=== PATIENT | female | born 1965 | race Caucasian/White ===

== ENCOUNTER 2017-09-12 10:06 | Emergency (ER) | payer OTHER ==
[~2017-09-12] VITALS: Ht 180.3 cm; Wt 81.7 kg
[~2017-09-12 10:06] MED LIST: IBUPROFEN600 MG PO
== END 2017-09-12 13:09 | disposition home or self-care (01) ==
LOC: ED 10:06
DX: M25.551 Pain in right hip (principal); M54.5 Low back pain
CPT/HCPCS: 72100; 73502; 99283

== ENCOUNTER 2018-04-26 02:57 | Emergency (ER) | payer OTHER ==
[~2018-04-26] VITALS: Ht 175.3 cm; Wt 81.7 kg
--- OUTSIDE RECORDS SUMMARY | 2018-04-26 03:02 | XMS ---
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 Jojo has no Care Guidelines for this patient. Jose VISIT COUNT (12 MO.) 2 NIKI Paredes TOTAL 2 NOTE: Visits indicate total known visits. ED/C VISIT TRACKING (12 MO.) 04/26/2018 02:57 [facility] [place] TYPE: Emergency COMPLAINT: - L BREAST PAIN/ISSUES BREATHING 09/12/2017 10:07 [facility] [place] TYPE: Emergency COMPLAINT: - R HIP PAIN/NO INJURY DIAGNOSES: - Low back pain - Pain in right hip INPATIENT VISIT TRACKING (12 MO.) No inpatient visits to display in this time frame [email or web address]
[2018-04-26] MEDS ORDERED: DICLOXACILLIN500 MG PO (03:55)
[2018-04-26] MEDS ORDERED: IBUPROFEN600 MG PO (04:03)
== END 2018-04-26 04:13 | disposition home or self-care (01) ==
LOC: ED 02:57
DX: N63.0 Unspecified lump in unspecified breast (principal)
CPT/HCPCS: 71046; 99283-25

== ENCOUNTER 2019-04-09 19:03 | Emergency (ER) | payer OTHER ==
[~2019-04-09] VITALS: Ht 175.3 cm; Wt 81.7 kg
--- OUTSIDE RECORDS SUMMARY | ~2019-04-09 | XMS | Clinical Summary ---
Demographics + + + | Address | [address] | | | [place] [address] | + + + | Home Phone | | + + + | Preferred Language | Unknown | + + + | Marital Status | Single | + + + | Episcopal Affiliation | Unknown | + + + | Race | Unknown | + + + | Ethnic Group | Unknown | + + + Author + + + | Author | [facility] | | | [facility] [place] | + + + | Organization | [facility] | | | [facility] [place] | + + + | Address | Unknown | + + + | Phone | Unavailable | + + + Support + + +---------+ + | Name | Relationship | Address | Phone | + + +---------+ + | Edward Kirkpatrick | ECON | Unknown | | + + +---------+ + Care Team Providers + +------+ + | Care Button Spindler Name | Role | Phone | + +------+ + | Memo Limon | PCP | | + +------+ + Allergies No Known Allergies Medications + +-----+ +---------+------+------+-------+ | Medication | Sig | Dispensed | Refills | Star | End | Statu | | | | | | t | Date | s | | | | | | Date | | | + +-----+ +---------+------+------+-------+ | | | | 0 | 12/2 | | Activ | | HYDROcodone-acetamin | | | | 4/20 | | e | | ophen (NORCO) | | | | 19 | | | | 7.5-325 mg per | | | | | | | | tablet | | | | | | | + +-----+ +---------+------+------+-------+ | ibuprofen | | | 0 | 01/2 | | Activ | | (ADVIL,MOTRIN) 600 | | | | 0/20 | | e | | MG tablet | | | | 19 | | | + +-----+ +---------+------+------+-------+ + + + + +------+------+-------+ | Hospital, Clinic, or | Ordered | Route | Frequency | Star | End | Statu | | Other Facility | Dose | | | t | Date | s | | Administered | | | | Date | | | | Medication | | | | | | | + + + + +------+------+-------+ | lidocaine 1% | 5 mL | INFILTRA | ONCE | 12/3 | 12/3 | Ended | | injection 5 mL | | TION | | 1/20 | 1/20 | | | | | | | 19 | 19 | | + + + + +------+------+-------+ Active Problems Not on file Encounters +--------+ + + + + | Date | Type | Specialty | Care Team | Description | +--------+ + + + + | 04/06/ | Hospital | Radiology | Vinod Michel MD | Inflammatory breast | | 2019 | Encounter | | | cancer, left (HCC) | +--------+ + + + + | 04/06/ | Office | General Surgery | Vinod Michel MD | Inflammatory breast | | 2019 | Visit | | | cancer, left (HCC) | | | | | | (Primary Dx) | +--------+ + + + + | 04/06/ | Navigation | Oncology | Mi Ma, | | | 2019 | Services | | RN | | +--------+ + + + + from Last 3 Months Social History + +-------+ +--------+------+ | Tobacco Use | Types | Packs/Day | Years | Date | | | | | Used | | + +-------+ +--------+------+ | Never Smoker | | | | | + +-------+ +--------+------+ + +---+---+---+ | Smokeless Tobacco: | | | | | Never Used | | | | + +---+---+---+ + + + | Sex Assigned at | Date Recorded | | | | + + + | Not on file | | + + + + + + + | Job Start Date | Occupation | Industry | + + + + | Not on file | Not on file | Not on file | + + + + + + + + | Travel History | Travel Start | Travel End | + + + + + + | No recent travel history available. | + + Last Filed Vital Signs + + + + + | Vital Sign | Reading | Time Taken | Comments | + + + + + | Blood Pressure | 138/73 | 04/06/2019 1:43 PM | | | | | PST | | + + + + + | Pulse | 86 | 04/06/2019 1:43 PM | | | | | PST | | + + + + + | Temperature | 36.4 C (97.6 F) | 04/06/2019 1:43 PM | | | | | PST | | + + + + + | Respiratory Rate | - | - | | + + + + + | Oxygen Saturation | 91% | 04/06/2019 1:43 PM | | | | | PST | | + + + + + | Inhaled Oxygen | - | - | | | Concentration | | | | + + + + + | Weight | - | - | | + + + + + | Height | 176.5 cm (5' 9.5") | 04/06/2019 1:43 PM | | | | | PST | | + + + + + | Body Mass Index | - | - | | + + + + + Plan of Treatment +--------+ + + + + | Date | Type | Specialty | Care Team | Description | +--------+ + + + + | 04/12/ | Appointment | Radiology | Vinod Michel MD | | | 2019 | | | [address] [place] | | | | | | [address] [place] | | | | | | [address] | | | | | | | | +--------+ + + + + | 04/12/ | Appointment | Radiology | Vinod Michel MD | | | 2019 | | | [address] [place] | | | | | | [address] [place] | | | | | | [address] | | | | | | | | +--------+ + + + + | 04/12/ | Office | Oncology | Anisha Mcintosh MD | | | 2019 | Visit | | [address] | | | | | | [place] | | | | | | [phone] | | | | | | | | +--------+ + + + + + + + + + | Health Maintenance | Due Date | Last Done | Comments | + + + + + | Vaccine: | | | | | Dtap/Tdap/Td (1 - | 8 | | | | Tdap) | | | | + + + + + | Cervical Cancer | | | | | Screening (Pap) | 7 | | | + + + + + | Breast Cancer | | | | | Screening | 2 | | | + + + + + | Colorectal Cancer | | | | | Screening | 7 | | | | (Colonoscopy) | | | | + + + + + | Vaccine: Zoster (1 | | | | | of 2) | 7 | | | + + + + + | Vaccine: Influenza | | | | | (#1) | 9 | | | + + + + + Procedures + +--------+ + + + | Procedure Name | Priori | Date/Time | Associated Diagnosis | Comments | | | ty | | | | + +--------+ + + + | CT CHEST ABDOMEN | STAT | 04/06/2019 | Inflammatory | Results for this | | PELVIS W CONTRAST | | 4:20 PM | breast cancer, left | procedure are in the | | | | PST | ([facility]) | results section. | + +--------+ + + + | SURGICAL PATHOLOGY | STAT | 04/06/2019 | Inflammatory | Results for this | | EXAM | | 2:49 PM | breast cancer, left | procedure are in the | | | | PST | ([facility]) | results section. | + +--------+ + + + from Last [address] Chest Abdomen Pelvis w Contrast (04/06/2019 4:20 PM PST) + + | Specimen | + + | | + + + + + | Impressions | Performed At | + + + | 1. Massive entire replacement of the left breast with neoplasm, | [facility] | | almost contiguous metastatic involvement throughout the left axilla, | | | throughout the skin and subcutaneous tissues, with metastatic | | | adenopathy in the left neck, throughout the mediastinum, throughout | | | the abdomen, and with bulky metastatic disease of the liver, left | | | adrenal metastasis, omental and peritoneal metastatic disease, | | | bilateral ovarian metastatic disease, and multiple lytic bony | | | metastases with pathologic fractures as described. Signed | | | by: Juan Anderson, Yung Sign Date/Time: 04/06/2019 5:11 PM | | + + + + + + | Narrative | Performed At | + + + | CT CHEST ABDOMEN AND PELVIS WITH CONTRAST CLINICAL | [facility] | | INFORMATION: Shortness of breath and abdominal pain, Staging work up | | | possible metastatic breast cancer COMPARISON: None | | | PROCEDURE: Axial images through the chest, abdomen and pelvis after | | | the administration of 100 mL Omnipaque 350 intravenous contrast. | | | Multiplanar reconstructions. At least one of the following CT dose | | | optimization techniques were used: Automated exposure control; | | | Adjustment of mA and/or kV according to patient size; Use of | | | iterative reconstruction technique. FINDINGS: CHEST Lungs, | | | Pleura and Airways: Spiculated mass in the anterior right upper lobe | | | measuring 1.3 by 1.0 cm. 6 x 4 mm nodule in the lateral left | | | lung base . Perhaps an additional nodule in the anterior lingula | | | measuring 7 x 4 mm, poorly defined due to patient motion. | | | Nodular densities are seen along the anterior minor fissure | | | measuring 9 x 13 mm, 9 x 13 mm, suspicious for metastatic disease. | | | Adjacent right anterior middle lobe, and also posterior right and left | | | basilar atelectasis. Small right and left lower lobe pleural | | | effusions. Mediastinum: No significant pericardial, great vessel or | | | esophageal abnormality. No mediastinal mass. Lymph Nodes: | | | Metastatic adenopathy measuring up to 1.7 by 1.3 cm in the high left | | | prevascular region. Left pericardial metastatic disease with | | | nodules measuring up to 10 x 6 mm. Bulky metastatic infiltration | | | in the left axilla, for example measuring 5.0 x 3.7 cm, | | | measuring 4.0 x 3.0 cm. Diffuse masslike infiltration throughout the | | | left breast measuring 15 cm transverse by 6.6 cm AP, by 15.8 cm | | | superoinferior dimension, with additional nodular metastatic | | | infiltration throughout the skin and subcutaneous tissues throughout | | | the left breast. Diffuse metastatic infiltration and lytic change | | | throughout the sternum, extending into the presternal and substernal | | | soft tissues, measuring up to 16 mm in thickness presternal, 10 mm | | | substernal. Infiltrative left base of the neck metastatic | | | adenopathy for example 06/22 measuring 3.5 x 3.2 cm, with additional | | | level 3, level 5 metastatic left neck adenopathy. ABDOMEN Liver | | | and Biliary: Massive bulky metastatic adenopathy throughout the | | | liver. The largest of these in the lateral right hepatic lobe | | | measures at least 11.6 x 9.1 cm , with numerous right and left | | | hepatic metastatic foci. Hepatic enlargement. Pancreas, Spleen and | | | Adrenals: Left adrenal 2.5 x 1.8 cm metastasis. Right adrenal is | | | compressed, poorly defined, without definite adenopathy. Pancreas | | | unremarkable. Spleen unremarkable. Kidneys: Hypodensity in the | | | lateral midpole of the left kidney measures 1.5 cm, inadequately | | | defined on these images. This may represent complex cyst, but | | | metastatic lesion can not be excluded. ABDOMEN AND PELVIS Bowel: | | | There is diffuse infiltration of the omentum and mesenteries, with | | | mild ascites throughout the abdomen and pelvis. This may be due to | | | edema. Metastatic infiltration could not be excluded. Vessels: No | | | significant abnormality in the aorta or its proximal branches. No | | | significant abnormality in the portal veins, mesenteric veins or | | | systemic veins. Lymph Nodes: There is bulky adenopathy in the | | | periaortic region, for example left periaortic region 121 measuring | | | 3.8 x 2.6 cm, dina hepatis adenopathy for example 114 measuring | | | 3.1 x 2.9 cm. Omental nodularity for example right upper quadrant | | | 131 measuring 4.9 by 1.8 cm. Peritoneum and Retroperitoneum: | | | Diffuse infiltration of the omentum and mesenteries, with mild | | | ascites as described. There is irregular nodularity infiltrating | | | throughout the pelvis, for example along the left and right pelvic | | | floor measuring up to 10 mm in thickness on the right 182. | | | PELVIS Genitourinary: Distal ureters and bladder appear normal. | | | Irregular enlargement of the right ovary measures at least 6.2 by | | | 4.7 cm, and left ovary 5.5 by 3.4 cm. I suspect metastatic | | | involvement of both ovaries. BODY WALL Soft Tissues: Diffuse | | | infiltration of the subcutaneous tissues throughout the chest abdomen | | | and pelvis, suggesting an element of anasarca. Bones: Lytic change | | | of the left iliac bone 166 measuring 8.5 cm AP by 4.1 cm transverse | | | dimension with pathologic fractures of the lateral left iliac crest, | | | diffuse lytic involvement of the sternum and manubrium, posterior | | | right acetabulum and ischium measuring 2.5 x 1.7 cm, | | | posterolateral left 5th rib with bony destruction and pathologic | | | fracture, anterior L2 vertebral body small lytic metastasis. | | + + + + + | Procedure Note | + + | Dave, Rad Results In 04/06/2019 5:15 PM PST | | CT CHEST ABDOMEN AND PELVIS WITH CONTRAST | | | | CLINICAL INFORMATION: | | Shortness of breath and abdominal pain, Staging work up possible | | metastatic breast cancer | | | | COMPARISON: | | None | | | | PROCEDURE: | | Axial images through the chest, abdomen and pelvis after the | | administration of 100 mL Omnipaque 350 intravenous contrast. | | Multiplanar reconstructions. | | | | At least one of the following CT dose optimization techniques were | | used: Automated exposure control; Adjustment of mA and/or kV according | | to patient size; Use of iterative reconstruction technique. | | | | FINDINGS: | | CHEST | | Lungs, Pleura and Airways: | | Spiculated mass in the anterior right upper lobe measuring 1.3 by | | 1.0 cm. | | 6 x 4 mm nodule in the lateral left lung base . | | Perhaps an additional nodule in the anterior lingula measuring 7 x | | 4 mm, poorly defined due to patient motion. | | Nodular densities are seen along the anterior minor fissure | | measuring 9 x 13 mm, 9 x 13 mm, suspicious for metastatic disease. | | Adjacent right anterior middle lobe, and also posterior right and left | | basilar atelectasis. | | Small right and left lower lobe pleural effusions. | | Mediastinum: No significant pericardial, great vessel or esophageal | | abnormality. No mediastinal mass. | | Lymph Nodes: | | Metastatic adenopathy measuring up to 1.7 by 1.3 cm in the high left | | prevascular region. | | Left pericardial metastatic disease with nodules measuring up to | | 10 x 6 mm. | | | | Bulky metastatic infiltration in the left axilla, for example | | measuring 5.0 x 3.7 cm, measuring 4.0 x 3.0 cm. | | Diffuse masslike infiltration throughout the left breast measuring | | 15 cm transverse by 6.6 cm AP, by 15.8 cm superoinferior dimension, | | with additional nodular metastatic infiltration throughout the skin and | | subcutaneous tissues throughout the left breast. | | | | Diffuse metastatic infiltration and lytic change throughout the | | sternum, extending into the presternal and substernal soft tissues, | | measuring up to 16 mm in thickness presternal, 10 mm substernal. | | | | Infiltrative left base of the neck metastatic adenopathy for example | | 06/22 measuring 3.5 x 3.2 cm, with additional level 3, level 5 | | metastatic left neck adenopathy. | | | | ABDOMEN | | Liver and Biliary: Massive bulky metastatic adenopathy throughout the | | liver. The largest of these in the lateral right hepatic lobe measures | | at least 11.6 x 9.1 cm 3, with numerous right and left hepatic | | metastatic foci. Hepatic enlargement. | | Pancreas, Spleen and Adrenals: Left adrenal 2.5 x 1.8 cm metastasis. | | Right adrenal is compressed, poorly defined, without definite | | adenopathy. Pancreas unremarkable. Spleen unremarkable. | | Kidneys: Hypodensity in the lateral midpole of the left kidney measures | | 1.5 cm, inadequately defined on these images. This may represent | | complex cyst, but metastatic lesion can not be excluded. | | | | ABDOMEN AND PELVIS | | Bowel: There is diffuse infiltration of the omentum and mesenteries, | | with mild ascites throughout the abdomen and pelvis. This may be due | | to edema. Metastatic infiltration could not be excluded. | | Vessels: No significant abnormality in the aorta or its proximal | | branches. No significant abnormality in the portal veins, mesenteric | | veins or systemic veins. | | Lymph Nodes: There is bulky adenopathy in the periaortic region, for | | example left periaortic region 3/121 measuring 3.8 x 2.6 cm, dina | | hepatis adenopathy for example 3/114 measuring 3.1 x 2.9 cm. | | Omental nodularity for example right upper quadrant 3/131 measuring 4.9 | | by 1.8 cm. | | Peritoneum and Retroperitoneum: Diffuse infiltration of the omentum and | | mesenteries, with mild ascites as described. There is irregular | | nodularity infiltrating throughout the pelvis, for example along the | | left and right pelvic floor measuring up to 10 mm in thickness on the | | right 3182. | | | | PELVIS | | Genitourinary: Distal ureters and bladder appear normal. Irregular | | enlargement of the right ovary measures at least 6.2 by 4.7 cm, and | | left ovary 5.5 by 3.4 cm. I suspect metastatic involvement of both | | ovaries. | | | | BODY WALL | | Soft Tissues: Diffuse infiltration of the subcutaneous tissues | | throughout the chest abdomen and pelvis, suggesting an element of | | anasarca. | | Bones: Lytic change of the left iliac bone 166 measuring 8.5 cm AP by | | 4.1 cm transverse dimension with pathologic fractures of the lateral | | left iliac crest, diffuse lytic involvement of the sternum and | | manubrium, posterior right acetabulum and ischium 203 measuring 2.5 x | | 1.7 cm, posterolateral left 5th rib with bony destruction and | | pathologic fracture, anterior L2 vertebral body small lytic metastasis. | | | | IMPRESSION: | | 1. Massive entire replacement of the left breast with neoplasm, almost | | contiguous metastatic involvement throughout the left axilla, | | throughout the skin and subcutaneous tissues, with metastatic | | adenopathy in the left neck, throughout the mediastinum, throughout the | | abdomen, and with bulky metastatic disease of the liver, left adrenal | | metastasis, omental and peritoneal metastatic disease, bilateral | | ovarian metastatic disease, and multiple lytic bony metastases with | | pathologic fractures as described. | | | | | | | | Signed by: Juan Anderson Shawn | | Sign Date/Time: 04/06/2019 5:11 PM | + + + +---------+ + + | Performing | Address | City/State/Zipcode | Phone Number | | Organization | | | | + +---------+ + + | [facility] | | | | + +---------+ + + Surgical Pathology Exam (04/06/2019 2:49 PM PST) + + | Specimen | + + | Tissue - Entire left | | breast (body | | structure) | + + + + + | Narrative | Performed At | + + + | THIS IS | [facility] | | AN ADDENDUM REPORT SPECIMEN(S): A LEFT BREAST SPECIMEN SOURCE:Ryan MALIN | | LEFT BREAST CLINICAL HISTORY:C50.912 (inflammatory breast cancer, | | | left) FINAL PATHOLOGIC DIAGNOSIS:Left breast, biopsy:- Infiltrating | | | ductal carcinoma with the following features: - Predicted | | | Home histologic score: - Glandular | | | (acinar)/tubular differentiation score: 3 of 3. - | | | Nuclear pleomorphism score: 3 of 3. - Mitotic | | | rate score: 3 of 3. - Overall grade: III/III | | | (total score 9/9). - Longest confluent tumor focus: 3 mm. | | | - Lymphvascular invasion: Absent. - Associated in situ | | | component: Absent. - Microcalcifications: Absent. - | | | Estrogen receptor, progesterone receptor, HER2 by FISH and Ki-67 | | | proliferating index: Pending, to be reported by addendum. COMMENT:As | | | part of [facility]' Quality Improvement Program, this case | | | was reviewed by another member of our pathology staff. DDF:NA:glc:C1NR | | | MICROSCOPIC EXAMINATION:Histologic sections of all submitted blocks | | | are examined by light microscopy. These findings, together with the | | | gross examination, support the pathologic diagnosis. GROSS | | | DESCRIPTION:The specimen, labeled "EJ, left breast biopsy," is | | | received in formalin and consists of an irregular shaped skin tissue | | | fragment that measures 0.3 x 0.3 x 0.2 cm. Specimen is inked. | | | Specimen isentirely submitted in cassette (A1).JS (under the direct | | | supervision of a pathologist) The Gross Description was prepared using | | | a voice recognition system. The report was reviewed for accuracy; | | | however, sound-alike word errors, addition and/or deletions may occur. | | | If there is anyquestion about this report, please contact Client | | | Services. PERFORMING LABORATORY:The technical component was performed | | | by [facility], [address] [place] [id number] (Medical | | | Director: Daysi Walter MD; IA# [id number]). ADDITIONAL | | | NOTES:Immunohistochemical and/or in situ hybridization studies were | | | performed on this case with the appropriate positive controls that | | | react as expected. This test was developed and its | | | performancecharacteristics determined by [facility]. It has | | | not been cleared or approved by the U.S. Food and Drug Administration. | | | The FDA has determined that such clearance or approval is | | | notnecessary. This test is used for clinical purposes. It should | | | not be regarded as investigational or for research. [facility] | | | [facility] is certified under the Clinical Laboratory | | | ImprovementAmendments of 1988 (CLIA) as qualified to perform high | | | complexity clinical laboratory testing. This assay has not been | | | validated for specimens that have been decalcified. The professional | | | interpretation was performed by [facility], [facility] | | | [place], [address] [place] [address]. REASON FOR ADDENDUM:To | | | add results of additional testing. ADDENDUM PATHOLOGIC DIAGNOSIS: | | | Estrogen receptor: Negative. - 0% of tumor cells with | | | staining. Progesterone receptor: Negative. - 0% of tumor | | | cells with staining. Ki-67 proliferation index: 80%. DDF:glc | | | ADDENDUM MICROSCOPIC EXAMINATION:Block: A1.The cold ischemia time is | | | unknown.The fixative is 10% NBF.The length of fixation is unknown. | | | Estrogen receptor clone SP1 and progesterone receptor clone [id number] by | | | [employer] [place], [place]. Detection: HRP Polymer | | | Detection on the [place] [employer] with appropriate controls. | | | Nuclear immunoreactivity of 1% or greater is considered positive by | | | ASCO/CAP guidelines. Internal control cells for ER are | | | positive. Internal control cells for MD are positive. A Ki-67 | | | proliferation index is performed, and 500 cells are counted. Technical | | | testing is performed at [facility] [place], [place]; professional | | | Interpretation is performed at [facility].DDF:glc REASON | | | FOR ADDENDUM:To add results of additional testing. ADDENDUM PATHOLOGIC | | | DIAGNOSIS: HER-2 protein by IHC, left breast:- Positive; IHC score | | | 3+. [facility] [place] ADDENDUM MICROSCOPIC EXAMINATION:Block: A2.The fixation | | | is 10% buffered formalin. The length of fixation is unknown. HER-2 | | | protein expression by immunohistochemistry using the FDA-approved | | | HER-2 Pathway is performed [place]. | | | Standardized batch control materials react appropriately. | | | Thepresence of tumor is confirmed. Scoring is according to | | | ASCO/CAP 2018 guidelines. Circumferential membrane staining that is | | | complete, intense and within greater than 10% of tumor cells; score | | | 3+.[facility]:caw Professional interpretation was performed by [facility] | | | [facility], [address], [place] [address] | | | (Mini Lab Operator: Jason Garcia D.O.; CLIA#: [id number]). | | | Diagnostician: Hong Santoro DOPathologistDiagnostician: Vandana Radford | | | [place] MDPathologistElectronically Signed 04/09/2019 | | | | | |Nuclear immunoreactivity of 1% or greater is considered positive by ASCO/CAP guidelines. | | | | | | Internal control cells for ER are positive. | | | Internal control cells for MD are positive. | | | | | | A Ki-67 proliferation index is performed, and 500 cells are counted. | | | | | |Technical testing is performed at [facility] [place], [place]; professional Interpretation is perfo rmed at [facility]. | | |DDF:glc | | | | | |REASON FOR ADDENDUM: | | |To add results of additional testing. | | | | | |ADDENDUM PATHOLOGIC DIAGNOSIS: | | | | | |HER-2 protein by IHC, left breast: | | |- Positive; IHC score 3+. | | | | | |[facility]:caw | | | | | |ADDENDUM MICROSCOPIC EXAMINATION: | | |Block: A2. | | |The fixation is 10% buffered formalin. The length of fixation is unknown. | | | | | |HER-2 protein expression by immunohistochemistry using the FDA-approved HER-2 Pathway is pe [place]formed [place] [facility]. Standardized batch control materials react mikey ropriately. The | | |presence of tumor is confirmed. Scoring is according to ASCO/CAP 2018 guidelines. Circu mferential membrane staining that is complete, intense and within greater than 10% of tumor cells; score 3+. | | |SWC:caw | | | | | |Professional interpretation was performed by [facility], [address] , [place] [address] (Mini Lab Operator: Jason Garcia D.O.; CLIA#: [id number]). | | | | | |Diagnostician: Hong Santoro DO | | |Pathologist | | |Diagnostician: Vandana Mata MD | | |Pathologist | | |Electronically Signed 04/09/2019 | | | | | | | | + + + + +---------+ + + | Performing | Address | City/State/Zipcode | Phone Number | | Organization | | | | + +---------+ + + | [facility] | | | | | [facility] | | | | + +---------+ + + from Last 3 Months Insurance + +--------+ +--------+ +---------+--------+ | Payer | Benefi | Subscriber | Effect | Phone | Address | Type | | | t Plan | ID | karan | | | | | | / | | Dates | | | | | | Group | | | | | | + +--------+ +--------+ +---------+--------+ | MEDICAID [place] | MEDICA | [id number] | 03/18/ | [phone] | | Medica | | | ID [place] | | 2019-P | 2 | | id | | | PLUS | | resent | | | | + +--------+ +--------+ +---------+--------+ + +--------+ +--------+ + + | Guarantor Name | Accoun | Relation to | Date | Phone | Billing Address | | | t Type | Patient | of | | | | | | | | | | + +--------+ +--------+ + + | Nancy Nunez | Person | Self | [birth year] | [address] | | | al/Fam | | 1965 | [phone] | [address] [place] | | | [place] | | | 1 (Home) | [address] | + +--------+ +--------+ + + Advance Directives + + + + + | Type | Date Recorded | Patient | Explanation | | | | Copy Lathe Operator | | + + + + + | Power of | | | | | Sheet Rock Hanger | | | | + + + + + | Advance | | | | | Directive | | | | + + + + +
--- OUTSIDE RECORDS SUMMARY | ~2019-04-09 | XMS | Encounter Summary ---
Demographics + + + | Address | [address] | | | [place] [address] | + + + | Home Phone | | + + + | Preferred Language | Unknown | + + + | Marital Status | Single | + + + | Scientologist Affiliation | Unknown | + + + | Race | Unknown | + + + | Ethnic Group | Unknown | + + + Author + + + | Author | [facility] | | | and [place] | + + + | Organization | [facility] | | | [...] Team Providers + +------+ + | Care Barrel Cutter Name | Role | Phone | + +------+ + | Memo Limon | PCP | | + +------+ + Reason for Referral Diagnostic/Screening (Emergency) + +--------+ + + + + | Status | Reason | Specialty | Diagnoses / | Referred By | Referred To | | | | | Procedures | Contact | Contact | + +--------+ + + + + | Pending | | Radiology | Diagnoses | Marilu, | [facility] | | Review | | | | MD Vinod | REGIONAL | | | | | Inflammatory | [address] | MEDICAL | | | | | breast | [address] [facility] | [address] | | | | | cancer, left | [address] | | | | | ([facility]) | [place], [place] | [place], [place] | | | | | Procedures | [address] | [address] | | | | | NM Bone Scan | Phone: | Phone: | | | | | Whole Body | [phone] | [phone] | | | | | | Fax: | Fax: | | | | | | [phone] | [phone] | + +--------+ + + + + Diagnostic/Screening (Emergency) + +--------+ + + + + | Status | Reason | Specialty | Diagnoses / | Referred By | Referred To | | | | | Procedures | Contact | Contact | + +--------+ + + + + | Pending | | Radiology | Diagnoses | Marilu, | [facility] | | Review | | | | MD Vinod | REGIONAL | | | | | Inflammatory | [address] | MEDICAL | | | | | breast | [address] [facility] | [address] | | | | | cancer, left | [address] | | | | | ([facility]) | [place], [place] | [place], [place] | | | | | Procedures | [address] | [address] | | | | | CT Chest | Phone: | Phone: | | | | | Abdomen | [phone] | [phone] | | | | | Pelvis w | Fax: | Fax: | | | | | Contrast | [phone] | [phone] | + +--------+ + + + + Reason for Visit + + + | Reason | Comments | + + + | Breast Mass | Pt is here today for a consult for a left breast mass. Pt states | | | she has two spots where her breast is draining. Pt states | | | draining smells. Pt states breast is red. Pt states issues with | | | her breast have been going on for two years. Pt states her breast | | | is inflammed and has been off and on. Pt states a couple months | | | ago it got worse. Pt denies family hx of breast, ovarian, and | | | colon cancer. | + + + Evaluate & Treat (Urgent) + +--------+ + + + + | Status | Reason | Specialty | Diagnoses / | Referred By | Referred To | | | | | Procedures | Contact | Contact | + +--------+ + + + + | Authorized | | Breast | Diagnoses | Unknown, | [facility] | | | | Surgery / | Malignant | Practitioner | Surgery [address] | | | | General | neoplasm of | , Phone: | [address] | | | | Surgery | central | | [address] | | | | | portion of | | [place], [place] | | | | | left female | Fax: | [address] | | | | | breast (HCC) | | Phone: | | | | | | | [phone] | | | | | | | Fax: | | | | | | | [phone] | + +--------+ + + + + Encounter Details +--------+---------+ + + + | Date | Type | Department | Care Team | Description | +--------+---------+ + + + | 04/06/ | Office | [facility] | Vinod Michel MD | Inflammatory breast | | 2019 | Visit | GENERAL SURGERY [address] | [address] | cancer, left (HCC) | | | | [address] | [address] [place], [place] | (Primary Dx) | | | | [place], [place] | [address] | | | | | [address] | | | | | | [phone] | | | +--------+---------+ + + + Social History + +-------+ +--------+------+ | Tobacco [...] recent travel history available. | + + documented as of this encounter Last Filed Vital Signs + + + [...] | | + + + + + documented in this encounter Progress Notes Vinod Michel MD - 04/06/2019 1:30 PM PST [facility] Service: Breast Surgery Pre-Operative History & Physical DIAGNOSIS: Left breast, fungating mass with bilateral axillary lymphadenopathy and acute bi lateral lower extremity edema highly suspicious for widely metastatic breast cancer CHIEF COMPLAINT: Large, draining left breast mass History Obtained From: Patient HISTORY OF PRESENT ILLNESS The patient is 54 y.o. female presents with large, fixed fungating left breast mass present for approximately 2 years. This patient is a 54-year-old female who states that she has neil d an evolving swollen breast over the past 2 years. Recently presented to outside facility emergency department where underwent ultrasound, but results are not available today in clin ic. Patient states that she is recently seen 2 surgeons, 1 of which recommended immediate s urgery. Patient also reports increased fatigue and shortness of breath in addition to bilat eral acute lower extremity edema. Denies any family history of breast cancer. REVIEW OF SYSTEMS Review of Systems Constitutional: Positive for activity change, appetite change, fatigue and unexpected weigh t change. HENT: Negative. Respiratory: Positive for shortness of breath. Cardiovascular: Positive for leg swelling. Musculoskeletal: Positive for arthralgias. Skin: Positive for wound. Neurological: Negative. Hematological: Negative. Psychiatric/Behavioral: Negative. All other systems reviewed and are negative. History reviewed. No pertinent past medical history. History reviewed. No pertinent surgical history. No Known Allergies Current Outpatient Medications on File Prior to Visit Medication Sig Dispense Refill HYDROcodone-acetaminophen (NORCO) 7.5-325 mg per tablet ibuprofen (ADVIL,MOTRIN) 600 MG tablet No current facility-administered medications on file prior to visit. History reviewed. No pertinent family history. Social History Socioeconomic History Marital status: Single Spouse name: Not on file Number of children: Not on file Years of education: Not on file Highest education level: Not on file Occupational History Not on file Social Needs Financial resource strain: Not on file Food insecurity: Worry: Not on file Inability: Not on file Transportation needs: Medical: Not on file Non-medical: Not on file Tobacco Use Smoking status: Never Smoker Smokeless tobacco: Never Used Substance and Sexual Activity Alcohol use: Not on file Drug use: Not on file Sexual activity: Not on file Lifestyle Physical activity: Days per week: Not on file Minutes per session: Not on file Stress: Not on file Relationships Social connections: Talks on phone: Not on file Gets together: Not on file Attends advent service: Not on file Active member of club or organization: Not on file Attends meetings of clubs or organizations: Not on file Relationship status: Not on file Intimate partner violence: Fear of current or ex partner: Not on file Emotionally abused: Not on file Physically abused: Not on file Forced sexual activity: Not on file Other Topics Concern Not on file Social History Narrative Not on file PHYSICAL EXAM Vital Signs: BP 138/73 | Pulse 86 | Temp 36.4 C (97.6 F) (Oral) | Ht 1.765 m (5' 9.5") | SpO2 91 % Physical Exam Constitutional: Appearance: She is well-developed and underweight. She is ill-appearing. HENT: Head: Normocephalic. Neck: Musculoskeletal: Normal range of motion. Cardiovascular: Rate and Rhythm: Normal rate. Pulmonary: Effort: Pulmonary effort is normal. Chest: Chest wall: Mass, deformity and edema present. No tenderness. Breasts: Breasts are asymmetrical. Right: No inverted nipple, mass, nipple discharge, skin change or tenderness. Left: Swelling, bleeding, mass, nipple discharge, skin change and tenderness present. No inverted nipple. Abdominal: General: There is no distension. Palpations: Abdomen is soft. Musculoskeletal: Normal range of motion. Comments: Bilateral lower extremity edema up to abdomen; bilateral pitting edema lower e xtremities below the knee. Lymphadenopathy: Upper Body: Right upper body: Axillary adenopathy present. Left upper body: Axillary adenopathy present. Psychiatric: Behavior: Behavior normal. Thought Content: Thought content normal. Judgment: Judgment normal. ASSESSMENT: 54 y.o.-yr-old female who presents with fungating left breast mass, bilateral axillary lymphadenopathy, acute lateral lower extremity edema with widely metastatic breast cancer. PLAN/RECOMMENDATIONS: I have counseled Nancy Nunez that her clinical picture is worrisome for advanced left breast cancer. We performed skin biopsy today in clinic which was sent in formalin to pathology. I explained that in order to develop a more complete picture of her clinical findings, we will need STAT CT of her chest, abdomen and pelvis. We will also catherine n for a bone scan next week when she follows up with medical oncology. CT scan will be perf ormed today. She understands that if CT scan demonstrates any acute findings that require hospital admis padmini, she will be admitted tonight to the hospitalist service for further management. I cou nseled her that I am concerned about her acute shortness of breath and acute bilateral lower extremity edema which may need inpatient management. She is prepared for this possibility and we will proceed with her CT this evening. She met with our breast cancer nurse navigator today, Mi Ma, RN, BSN. Primary Care Physician: EMILIA Ham MD *CORE MEASURES REMINDER: If the patient has a known or suspected infection prior to surger y, please add diagnosis to the problem list (consider: Infection 136.9). documented in this enco unter Plan of Treatment +--------+ + + + + | Date | Type | Specialty | Care Team | Description | +--------+ + + + + | 04/12/ | Appointment | Radiology | Vinod Michel MD | | | 2020 | | | [address] [place] | | | | | | [address] [place] | | | | | | [address] | | | | | | | | +--------+ + + + + | 04/12/ | Appointment | Radiology | Vinod Michel MD | | | 2019 | | | [address] [place] | | | | | | [address] [place] | | | | | | [address] | | | | | | | | +--------+ + + + + | 04/12/ | Office | Oncology | Anisha Mcintosh MD | | | 2019 | Visit | | [address] | | | | | | [place] | | | | | | [address] | | | | | | | | +--------+ + + + + + +---------+--------+ + + | Name | Type | Priori | Associated Diagnoses | Order Schedule | | | | ty | | | + +---------+--------+ + + | NM Bone Scan Whole | Imaging | STAT | Inflammatory | Expected: | | Body | | | breast cancer, left | 04/06/2019, Expires: | | | | | (HCC) | 04/06/2020 | + +---------+--------+ + + documented as of this encounter Procedures + +--------+ + + + | [...] the | | | | PST | ([facility]) | results section. | + +--------+ + + + documented in this encounter Results CT Chest Abdomen Pelvis w Contrast [...] periaortic region, for example left periaortic region /121 measuring | | | 3.8 x 2.6 cm, dina hepatis adenopathy for example /114 measuring | | | 3.1 x 2.9 cm. Omental nodularity for example right upper quadrant | | | 3/131 measuring 4.9 by 1.8 cm. Peritoneum and [...] | | | right acetabulum and ischium 203 measuring 2.5 x 1.7 cm, | | [...] | at least 11.6 x 9.1 cm 3/, with numerous right and left hepatic | [...] following features: - Predicted | | | Gautam histologic score: - Glandular | | | [...] addendum. COMMENT:As | | | part of [employer]' Quality Improvement Program, this case | | [...] component was performed | | | by [facility], [address] [place] [address] (Medical | | | Director: Daysi Walter MD; IA# [id number]). ADDITIONAL | | | NOTES:Immunohistochemical and/or in situ hybridization studies were | | | performed on this case with the appropriate positive controls that | | | react as expected. This test was developed and its | | | performancecharacteristics determined by [facility]. It has | | | not been cleared or approved by the U.S. Food and Drug Administration. | | | The FDA has determined that such clearance or approval is | | | notnecessary. This test is used for clinical purposes. It should | | | not be regarded as investigational or for research. [facility] | | | Diagnostics is certified under the Clinical Laboratory | | | ImprovementAmendments of 1988 (CLIA) as qualified to perform high | | | complexity clinical laboratory testing. This assay has not been | | | validated for specimens that have been decalcified. The professional | | | interpretation was performed by [facility], [facility] | | | [place], [address] [place] [address]. REASON FOR ADDENDUM:To | | | add [...] receptor clone [id number] by | | | [employer] [place], [place]. Detection: HRP Polymer | | | Detection on the [place] Immunostainer with appropriate controls. | | | Nuclear immunoreactivity of 1% or greater is considered positive by | | | ASCO/CAP guidelines. Internal control cells for ER are | | | positive. Internal control cells for CO are positive. A Ki-67 | | | proliferation index is performed, and 500 cells are counted. Technical | | | testing is performed at [facility] [place], [place]; professional | | | Interpretation is performed at [facility].DDF:glc REASON | | | FOR ADDENDUM:To add results of additional testing. ADDENDUM PATHOLOGIC | | | DIAGNOSIS: HER-2 protein by IHC, left breast:- Positive; IHC score | | | 3+. [facility]:caw ADDENDUM MICROSCOPIC EXAMINATION:Block: A2.The fixation | | | is 10% buffered formalin. The length of fixation is unknown. HER-2 | | | protein expression by immunohistochemistry using the FDA-approved | | | HER-2 Pathway [place] performed [place]. | | | Standardized batch control materials react appropriately. | | | Thepresence of tumor is confirmed. Scoring is according to | | | ASCO/CAP 2018 guidelines. Circumferential membrane staining that is | | | complete, intense and within greater than 10% of tumor cells; score | | | 3+.SWC:caw Professional interpretation was performed by [facility] | | | [employer], [address] [place] [address] | | | (Ultimate Hoops Trainer: Jason Garcia D.O.; CLIA#: [id number]). | | | Diagnostician: Hong Santoro DOPathologistDiagnostician: Vandana Radford | | | Esperanza MDPathologistElectronically Signed 04/09/2019 | | | | | |Nuclear immunoreactivity of 1% or greater is considered positive by ASCO/CAP guidelines. | | | | | | Internal control cells for ER are positive. | | | Internal control cells for CO are positive. | | | | | | A Ki-67 proliferation index is performed, and 500 cells are counted. | | | | | |Technical testing is performed at [facility] [place], [place]; professional Interpretation is perfo rmed at [facility]. | | |DDF:glc | | | | [...] FDA-approved HER-2 Pathway is pe [place]formed [place]. Standardized batch control materials react mikey ropriately. The | | |presence of tumor is confirmed. Scoring is according to ASCO/CAP 2018 guidelines. Circu mferential membrane staining that is complete, intense and within greater than 10% of tumor cells; score 3+. | | |SWC:caw | | | | | |Professional interpretation was performed by [facility], [address], [place] [address] (Ultimate Hoops Trainer: Jason Garcia D.O.; CLIA#: [id number]). | | | | | |Diagnostician: Hong [...] | | | + +---------+ + + documented in this encounter Visit Diagnoses + + | Diagnosis | + + | Inflammatory breast cancer, left (HCC) - Primary | + + documented in this encounter Administered Medications + +--------+ +-------+------+------+ | Medication Order | MAR | Action | Dose | Rate | Site | | | Action | Date | | | | + +--------+ +-------+------+------+ | lidocaine 1% injection 5 mL 5 | Given | 04/06/20 | 5 mLs | | | | mL, Infiltration, ONCE, Tue | | 19 3:29 | | | | | 04/06/19 at 1415, For 1 dose | | PM PST | | | | + +--------+ +-------+------+------+ +---+---+ | | | +---+---+ documented in this encounter
--- OUTSIDE RECORDS SUMMARY | ~2019-04-09 | XMS | Clinical Summary ---
Demographics + + + | Address | [address] | | | [place] [address] | + + + | Home Phone | | + + + | Preferred Language | Unknown | + + + | Marital Status | Single | + + + | Methodist Affiliation | Unknown | + + + | Race | Unknown | + + + | Ethnic Group | Unknown | + + + Author + + + | Author | [facility] | | | and [place] | + + + | Organization | [facility] | | | [...] Team Providers + +------+ + | Care Hair Or Beauty Salon Manager Name | Role | Phone | + [...] [place] | | | | | | [address] | | | | | | | | +--------+ + + + + | 04/12/ | Appointment | Radiology | Vinod Michel MD | | | 2019 | | | [address] [place] | | | | | | [address] [place] | | | | | | [address] | | | | | | | [...] | | | PST | ([facility]) | results section. | + +--------+ + + + | SURGICAL PATHOLOGY | STAT | 04/06/2019 | Inflammatory | Results for this | | EXAM | | 2:49 PM | breast cancer, left | procedure are in the | | | | PST | ([facility]) | results section. | + +--------+ [...] following features: - Predicted | | | Hines histologic score: - Glandular | | | [...] addendum. COMMENT:As | | | part of [employer]' Quality Improvement Program, this case | | [...] component was performed | | | by [facility], [address] [place] [address] (Medical | | | Director: Daysi Walter MD; IA# [id number]). ADDITIONAL | | | NOTES:Immunohistochemical and/or in situ hybridization studies were | | | performed on this case with the appropriate positive controls that | | | react as expected. This test was developed and its | | | performancecharacteristics determined by [facility]. It has | | | not been cleared or approved by the U.S. Food and Drug Administration. | | | The FDA has determined that such clearance or approval is | | | notnecessary. This test is used for clinical purposes. It should | | | not be regarded as investigational or for research. [facility] | | | [facility] is certified under the Clinical Laboratory | | | ImprovementAmendments of 1988 (CLIA) as qualified to perform high | | | complexity clinical laboratory testing. This assay has not been | | | validated for specimens that have been decalcified. The professional | | | interpretation was performed by [facility], [facility] | | | [place], [address] [place] [address]. REASON FOR ADDENDUM:To | | | add [...] receptor clone [id number] by | | | [employer] [place], [place]. Detection: HRP Polymer | | | Detection on the [place] Immunostainer with appropriate controls. | | | Nuclear immunoreactivity of 1% or greater is considered positive by | | | ASCO/CAP guidelines. Internal control cells for ER are | | | positive. Internal control cells for NC are positive. A Ki-67 | | | proliferation index is performed, and 500 cells are counted. Technical | | | testing is performed at [facility] [place], [place]; professional | | | Interpretation is performed at [facility].DDF:glc REASON | | | FOR ADDENDUM:To add results of additional testing. ADDENDUM PATHOLOGIC | | | DIAGNOSIS: HER-2 protein by IHC, left breast:- Positive; IHC score | | | 3+. [facility]aw ADDENDUM MICROSCOPIC EXAMINATION:Block: A2.The fixation | | | is 10% buffered formalin. The length of fixation is unknown. HER-2 | | | protein expression by immunohistochemistry using the FDA-approved | | | HER-2 Pathway is performed [place]. | | | Standardized batch control materials react appropriately. | | | Thepresence of tumor is confirmed. Scoring is according to | | | ASCO/CAP 2018 guidelines. Circumferential membrane staining that is | | | complete, intense and within greater than 10% of tumor cells; score | | | 3+.SWC:caw Professional interpretation was performed by [facility] | | | [place], [address], [place] [address] | | | (Real Estate Photographer: Jason Garcia D.O.; CLIA#: [id number]). | | | Diagnostician: Hong Santoro DOPathologistDiagnostician: Vandana Radford | | | Esperanza MDPathologistElectronically Signed 04/09/2019 | | | | | |Nuclear immunoreactivity of 1% or greater is considered positive by ASCO/CAP guidelines. | | | | | | Internal control cells for ER are positive. | | | Internal control cells for NC are positive. | | | | | | A Ki-67 proliferation index is performed, and 500 cells are counted. | | | | | |Technical testing is performed at [facility] [place], [place]; professional Interpretation is perfo rmed at [facility]. | | |DDF:glc | | | | [...] FDA-approved HER-2 Pathway is pe [place]formed [place]. Standardized batch control materials react mikey ropriately. The | | |presence of tumor is confirmed. Scoring is according to ASCO/CAP 2018 guidelines. Circu mferential membrane staining that is complete, intense and within greater than 10% of tumor cells; score 3+. | | |SWC:caw | | | | | |Professional interpretation was performed by [facility], [address] , [place] [address] (Real Estate Photographer: Jason Garcia D.O.; CLIA#: [id number]). | | | | | |Diagnostician: Hong [...] +---------+--------+ | MEDICAID [place] | MEDICA | [id number] | 03/18/ | [phone] | | Medica | | | ID [...] | | 1965 | [phone] | [address] | | | [place] | | | [address] (Home) | [address] | + +--------+ +--------+ + + Advance Directives + + + + + | Type | Date Recorded | Patient | Explanation | | | | Check Cashier | | + + + + + | Power of | | | | | Edge Molder | | | | + + + + + | Advance | | | | | Directive | | | | + + + + +
--- OUTSIDE RECORDS SUMMARY | ~2019-04-09 | XMS | Encounter Summary ---
Demographics + + + | Address | [address] | | | [place] [address] | + + + | Home Phone | | + + + | Preferred Language | Unknown | + + + | Marital Status | Single | + + + | Denominational Affiliation | Unknown | + + + | Race | Unknown | + + + | Ethnic Group | Unknown | + + + Author + + + | Author | [facility] | | | and [place] | + + + | Organization | [facility] | | | and [...] Team Providers + +------+ + | Care Religious Assistant Name | Role | Phone | + [...] | Radiology | Diagnoses | Marilu, | [facility] | | Review | | | | MD Vinod | REGIONAL | | | | | Inflammatory | [address] | MEDICAL | | | | | breast | [address] [facility] | [place] [address] | | | | | cancer, left | [address] | | | | | ([facility]) | [place], [place] | [place], [place] | | | | | Procedures | [address] | [address] | | | | | CT Chest | Phone: | Phone: | | | | | Abdomen | [phone] | [phone] | | | | | Pelvis w | Fax: | Fax: | | | | | Contrast | [phone] | [phone] | + +--------+ + + + + Reason for Visit Diagnostic/Screening (Emergency) + +--------+ + + + + | Status | Reason | Specialty | Diagnoses / | Referred By | Referred To | | | | | Procedures | Contact | Contact | + +--------+ + + + + | Pending | | Radiology | Diagnoses | Droakhil, | C [facility] | | Review | | | | MD Vinod | REGIONAL | | | | | Inflammatory | [address] | MEDICAL | | | | | breast | [address] [facility] | [place] [address] | | | | | cancer, left | [address] | | | | | (HCC) | [place], [place] | [place] | | | | | Procedures | [address] | [address] | | | | | CT Chest | Phone: | Phone: | | | | | Abdomen | [phone] | [phone] | | | | | Pelvis w | Fax: | Fax: | | | | | Contrast | [phone] | [phone] | + +--------+ + + + + Encounter Details +--------+ + + + + | Date | Type | Department | Care Team | Description | +--------+ + + + + | 04/06/ | Hospital | [facility] | Vinod Michel MD | Inflammatory breast | | 2019 | Encounter | [facility] CT | [address] | cancer, left (HCC) | | | | [address] | [address] [place], [place] | | | | | [place], [place] | [address] | | | | | [address] | | | | | | [phone] | | | +--------+ + + + + Social History + +-------+ [...] + + documented as of this encounter Medications at Time of Discharge + +-----+ +---------+ + + | Medication | Sig | Dispensed | Refills | Start | End Date | | | | | | Date | | + +-----+ +---------+ + + | | | | 0 | 12/24/20 | | | HYDROcodone-acetamin | | | | 19 | | | ophen (NORCO) | | | | | | | 7.5-325 mg per | | | | | | | tablet | | | | | | + +-----+ +---------+ + + | ibuprofen | | | 0 | 04/26/19 | | | (REAL CARRANZA) 600 | | | | 19 | | | MG tablet | | | | | | + +-----+ +---------+ + + documented as of this encounter Plan of Treatment +--------+ + + + + | Date | Type | Specialty | Care Team | Description | +--------+ + + + + | 04/12/ | Appointment | Radiology | Vinod Michel MD | | | 2019 | | | [address] | | | | | | [address] [place] | | | | | | [address] | | | | | | | | +--------+ + + + + | 04/12/ | Appointment | Radiology | Vinod Michel MD | | | 2019 | | | [address] | | | | | | [address] [place] | | | | | | [address] | | | | | | | | +--------+ + + + + | 04/12/ | Office | Oncology | Anisha Mcintosh MD | | | 2019 | Visit | | [address] | | | | | | [place] | | | | | | [address] | | | | | | | | +--------+ + + + + documented as of this encounter [...] | | | PST | ([facility]) | results section. | + +--------+ [...] example right upper quadrant | | | /131 measuring 4.9 by 1.8 cm. Peritoneum and Retroperitoneum: | | | Diffuse infiltration of the omentum and mesenteries, with mild | | | ascites as described. There is irregular nodularity infiltrating | | | throughout the pelvis, for example along the left and right pelvic | | | floor measuring up to 10 mm in thickness on the right /182. | | | PELVIS Genitourinary: Distal ureters [...] | | of the left iliac bone measuring 8.5 cm AP by 4.1 cm [...] + + | Dave, Rad Results In - 04/06/2019 5:15 PM PST | | CT [...] | at least 11.6 x 9.1 cm , with numerous right and left hepatic | [...] in thickness on the | | right 3/182. | | | | PELVIS | | [...] Lytic change of the left iliac bone measuring 8.5 cm AP by | | 4.1 cm transverse dimension with pathologic fractures of the lateral | | left iliac crest, diffuse lytic involvement of the sternum and | | manubrium, posterior right acetabulum and ischium measuring 2.5 x | | 1.7 cm, [...] + | Inflammatory breast cancer, left (HCC) | + + documented in this encounter Administered Medications + +--------+ +---------+------+------+ | Medication Order | MAR | Action | Dose | Rate | Site | | | Action | Date | | | | + +--------+ +---------+------+------+ | iohexol (OMNIPAQUE 350) 350 | Given | 04/06/20 | 100 mLs | | | | mg/mL injection 100 mL 100 mL, | | 19 4:22 | | | | | Intravenous, ONCE PRN, Other, | | PM PST | | | | | Starting 04/06/19 at 1533, | | | | | | | For 1 dose, Cat Scanner | | | | | | + +--------+ +---------+------+------+ +---+---+ | | | +---+---+ documented in this encounter"
--- OUTSIDE RECORDS SUMMARY | ~2019-04-09 | XMS | Encounter Summary ---
Demographics + + + | Address | [address] | | | [place] [address] | + + + | Home Phone | | + + + | Preferred Language | Unknown | + + + | Marital Status | Single | + + + | Scientology Affiliation | Unknown | + + + | Race | Unknown | + + + | Ethnic Group | Unknown | + + + Author + + + | Author | [facility] | | | and [place] | + + + | Organization | [facility] | | | and [...] Team Providers + +------+ + | Care Graphics Intern Name | Role | Phone | + [...] | Radiology | Diagnoses | Marilu, | [facility] | | Review | | | | MD Vinod | REGIONAL | | | | | Inflammatory | [address] | MEDICAL | | | | | breast | [address] [facility] | [place] [address] | | | | | cancer, left | [address] | | | | | ([facility]) | [place], [place] | [place], [place] | | | | | Procedures | [address] | [address] | | | | | NM Bone Scan | Phone: | Phone: | | | | | Whole Body | [phone] | [phone] | | | | | | Fax: | Fax: | | | | | | [phone] | [phone] | + +--------+ + + + + Diagnostic/Screening (Emergency) + +--------+ + + + + | Status | Reason | Specialty | Diagnoses / | Referred By | Referred To | | | | | Procedures | Contact | Contact | + +--------+ + + + + | Pending | | Radiology | Diagnoses | Marilu, | C [facility] | | Review | | | | MD Vinod | REGIONAL | | | | | Inflammatory | [address] | MEDICAL | | | | | breast | [address] [facility] | [place] [address] | | | | | cancer, left | [address] | | | | | ([facility]) | [place], [place] | [place], [place] | | | | | Procedures | [address] | [address] | | | | | CT Chest | Phone: | Phone: | | | | | Abdomen | [phone] | [phone] | | | | | Pelvis w | Fax: | Fax: | | | | | Contrast | [phone] | [phone] | + +--------+ + + + + [...] | | | portion of | | [place], [place] | | | | | left female | Fax: | [address] | | | | | breast (HCC) | | Phone: | | | | | | | [phone] | | | | | | | Fax: | | | | | | | [phone] | + +--------+ + + + + Encounter Details +--------+---------+ + + + | Date | Type | Department | Care Team | Description | +--------+---------+ + + + | 04/06/ | Office | [facility] | Vinod Michel MD | Inflammatory breast | | 2019 | Visit | GENERAL SURGERY [address] | [address] | cancer, left (HCC) | | | | [address] | [address] [place], [place] | (Primary Dx) | | | | [place], [place] | [address] | | | | | [address] | | | | | | [phone] | | | +--------+---------+ + + + [...] Michel MD - 04/06/2019 1:30 PM PST [facility] GENER[facility]IC Service: Breast Surgery Pre-Operative [...] file Gets together: Not on file Attends [employer]aritan service: Not on file Active member of [...] [place] | | | | | | [address] | | | | | | | | +--------+ + + + + | 04/12/ | Appointment | Radiology | Vinod Michel MD | | | 2019 | | | [address] | | | | | | [address] [place] | | | | | | [address] | | | | | | | | +--------+ + + + + | 04/12/ | Office | Oncology | Anisha Mcintosh MD | | | 2019 | Visit | | [address] | | | | | | [place] | | | | | | [address] | | | | | | | [...] the | | | | PST | ([facility]) | results section. | + [...] addendum. COMMENT:As | | | part of [facility]' Quality Improvement Program, this case | | [...] component was performed | | | by [facility], [address] [place] [id number] (Medical | | | Director: Daysi Walter MD; IA# [id number]). ADDITIONAL | | | NOTES:Immunohistochemical and/or in situ hybridization studies were | | | performed on this case with the appropriate positive controls that | | | react as expected. This test was developed and its | | | performancecharacteristics determined by [facility]. It has | | | not been cleared or approved by the U.S. Food and Drug Administration. | | | The FDA has determined that such clearance or approval is | | | notnecessary. This test is used for clinical purposes. It should | | | not be regarded as investigational or for research. [facility] | | [facility] is certified under the Clinical Laboratory | | | ImprovementAmendments of 1988 (CLIA) as qualified to perform high | | | complexity clinical laboratory testing. This assay has not been | | | validated for specimens that have been decalcified. The professional | | | interpretation was performed by [facility], [facility] | | | [place], [address] [place] [address]. REASON FOR ADDENDUM:To | | | add [...] receptor clone [id number] by | | | [employer] [place], [place]. Detection: HRP Polymer | | | Detection on the [employer] Immunostainer with appropriate controls. | | | Nuclear immunoreactivity of 1% or greater is considered positive by | | | ASCO/CAP guidelines. Internal control cells for ER are | | | positive. Internal control cells for MS are positive. A Ki-67 | | | proliferation index is performed, and 500 cells are counted. Technical | | | testing is performed at [facility] [place], [place]; professional | | | Interpretation is performed at [facility].DDF:glc REASON | | | FOR ADDENDUM:To add results of additional testing. ADDENDUM PATHOLOGIC | | | DIAGNOSIS: HER-2 protein by IHC, left breast:- Positive; IHC score | | | 3+. [facility]:caw ADDENDUM MICROSCOPIC EXAMINATION:Block: A2.The fixation | | | is 10% buffered formalin. The length of fixation is unknown. HER-2 | | | protein expression by immunohistochemistry using the FDA-approved | | | HER-2 Pathway is performed [place]. | | | Standardized batch control materials react appropriately. | | | Thepresence of tumor is confirmed. Scoring is according to | | | ASCO/CAP 2018 guidelines. Circumferential membrane staining that is | | | complete, intense and within greater than 10% of tumor cells; score | | | 3+.SWC:caw Professional interpretation was performed by [facility] | | | [employer], [address] [place] [place] [address] | | | (Ball Warper Tender: Jason Garcia D.O.; CLIA#: [id number]). | | | Diagnostician: Hong Santoro DOPathologistDiagnostician: Vandana Radford | | | Esperanza MDPathologistElectronically Signed 04/09/2019 | | | | | |Nuclear immunoreactivity of 1% or greater is considered positive by ASCO/CAP guidelines. | | | | | | Internal control cells for ER are positive. | | | Internal control cells for MS are positive. | | | | | | A Ki-67 proliferation index is performed, and 500 cells are counted. | | | | | |Technical testing is performed at [facility] [place], [place]; professional Interpretation is perfo rmed at [facility]. | | |DDF:glc | | | | [...] FDA-approved HER-2 Pathway is pe [place]formed [place]. Standardized batch control materials react mikey ropriately. The | | |presence of tumor is confirmed. Scoring is according to ASCO/CAP 2018 guidelines. Circu mferential membrane staining that is complete, intense and within greater than 10% of tumor cells; score 3+. | | |SWC:caw | | | | | |Professional interpretation was performed by [facility], [address], [place] [address] (Ball Warper Tender: Jason Garcia D.O.; CLIA#: [id number]). | | | | | |Diagnostician: Hong [...]
--- OUTSIDE RECORDS SUMMARY | ~2019-04-09 | XMS | Encounter Summary ---
Demographics + + + | Address | [address] | | | [place] [address] | + + + | Home Phone | | + + + | Preferred Language | Unknown | + + + | Marital Status | Single | + + + | Rastafarian Affiliation | Unknown | + + + | Race | Unknown | + + + | Ethnic Group | Unknown | + + + Author + + + | Author | [facility] | | | and [place] | + + + | Organization | [facility] | | | and [...] Team Providers + +------+ + | Care Coating Machine Helper Name | Role | Phone | + +------+ + | Memo Limon | PCP | | + +------+ + Reason for Visit + + + | Reason | Comments | + + + | Care Coordination | | + + + Encounter Details +--------+ + + + + | Date | Type | Department | Care Team | Description | +--------+ + + + + | 04/06/ | Navigation | [facility] | Mi Ma, | | | 2019 | Services | HEMATOLOGY AND | RN | | | | | ONCOLOGY [address] | | [address] | | | | | | [place] | | | | | | [address] | | | | | | [phone] | | | +--------+ + + + [...] + + documented as of this encounter Progress Notes Mi Ma RN - 04/06/2019 2:55 PM PST04/06/2019 Initial Navigation Consult: JOSE A met with pt at 's office. She is accompanied to day by her boyfriend who left during the visit. Background/ Assessment: Nancy is a 54 y.o. year old female with diagnosis of possible funga ting breast cancer. Met with Nancy today to introduce myself and my role as breast health lilliana gee navigator. Imaging/Screening [facility] . 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 Emotional assessment Pt is tearful throughout visit. Education: Intro to ONN role and support services available, reinforcement of education ma terials and treatment plan. Patient was able to accurately verbalize understanding of the e ducation given today. Provided pt with resource materials including information on Role of Tawnya arreaga Navigator, Breast Cancer Treatment Pathway, contact information for JOSE A directly and Hector ORTEGA contact list. Also provided information on Advanced Directives/Living will, [facility] newslet ter, support group information sheet, Cancer Booklet by Cancer.net, counseling resources and fatigue management information. Treatment, Treatment team: Surgeon is Dr Michel, Medical Oncologist is Dr Mcintosh, NN is Mi Ma, RN, BSN, OCN Support systems: Patient said she is upset with her boyfriend and said she does not inten d to stay with him. When asked about friends, family, scientology or other support systems she sa id she did not want to talk about it. Barriers and needs: Pt may need home health, transportation assistance for future appts de pending on the treatment plan. ONN plan: Will follow up on STAT CT scan, biopsy result and delinquency prevention social worker needs. Pt's questions were answered to her satisfaction. Pt was provided with direct contact ricardo reagan and will call if further questions or concerns arise. Mi Ma, RN, BSN, OCN Breast Health Nurse Navigator documented in this e ncounter Plan of Treatment +--------+ + + + + | Date | Type | Specialty | Care Team | Description | +--------+ + + + + | 04/12/ | Appointment | Radiology | Vinod Michel MD | | | 2019 | | | [address] | | | | | | [address] [place] | | | | | | [address] | | | | | | | | +--------+ + + + + | 04/12/ | Appointment | Radiology | Vinod Michel MD | | | 2019 | | | [address] | | | | | | [address] [place] | | | | | | [address] | | | | | | | | +--------+ + + + + | 04/12/ | Office | Oncology | Anisha Mcintosh MD | | | 2019 | Visit | | [address] | | | | | | [place] | | | | | | [address] | | | | | | | | +--------+ + + + + documented as of this encounter Visit Diagnoses Not on filedocumented in this encounter"
--- OUTSIDE RECORDS SUMMARY | ~2019-04-09 | XMS | Encounter Summary ---
Demographics + + + | Address | [address] | | | [place] [address] | + + + | Home Phone | | + + + | Preferred Language | Unknown | + + + | Marital Status | Single | + + + | Caodaism Affiliation | Unknown | + + + [...] Team Providers + +------+ + | Care Billposter Name | Role | Phone | + [...] | Radiology | Diagnoses | Marilu, | [facility] | | Review | | | | MD Vinod | REGIONAL | | | | | Inflammatory | [address] | MEDICAL | | | | | breast | [address] [facility] | [place] [address] | | | | | cancer, left | [address] | | | | | ([facility]) | [place], [place] | [place], [place] | | | | | Procedures | [address] | [address] | | | | | CT Chest | Phone: | Phone: | | | | | Abdomen | [phone] | [phone] | | | | | Pelvis w | Fax: | Fax: | | | | | Contrast | [phone] | [phone] | + +--------+ + + + + Reason for Visit Diagnostic/Screening (Emergency) + +--------+ + + + + | Status | Reason | Specialty | Diagnoses / | Referred By | Referred To | | | | | Procedures | Contact | Contact | + +--------+ + + + + | Pending | | Radiology | Diagnoses | Droakhil, | C [facility] | | Review | | | | MD Vinod | REGIONAL | | | | | Inflammatory | [address] | MEDICAL | | | | | breast | [address] [facility] | [place] [address] | | | | | cancer, left | [address] | | | | | (HCC) | [place], [place] | [place], [place] | | | | | Procedures | [address] | [address] | | | | | CT Chest | Phone: | Phone: | | | | | Abdomen | [phone] | [phone] | | | | | Pelvis w | Fax: | Fax: | | | | | Contrast | [phone] | [phone] | + +--------+ + + + + Encounter Details +--------+ + + + + | Date | Type | Department | Care Team | Description | +--------+ + + + + | 04/06/ | Hospital | [facility] | Vinod Michel MD | Inflammatory breast | | 2019 | Encounter | [facility] CT | [address] | cancer, left (HCC) | | | | [address] | [address] [place], [place] | | | | | [place], [place] | [address] | | | | | [address] | | | | | | [phone] | | | +--------+ + + + [...] [place] | | | | | | [address] | | | | | | | | +--------+ + + + + | 04/12/ | Appointment | Radiology | Vinod Michel MD | | | 2019 | | | [address] | | | | | | [address] [place] | | | | | | [address] | | | | | | | | +--------+ + + + + | 04/12/ | Office | Oncology | Anisha Mcintosh MD | | | 2019 | Visit | | [address] | | | | | | [place] | | | | | | [address] | | | | | | | [...] | | | PST | ([facility]) | results section. | + +--------+ [...]
--- OUTSIDE RECORDS SUMMARY | ~2019-04-09 | XMS | Encounter Summary ---
Demographics + + + | Address | [address] | | | [place] [address] | + + + | Home Phone | | + + + | Preferred Language | Unknown | + + + | Marital Status | Single | + + + | Adventist Affiliation | Unknown | + + + | Race | Unknown | + + + | Ethnic Group | Unknown | + + + Author + + + | Author | [facility] | | | and [place] | + + + | Organization | [facility] | | | [...] Team Providers + +------+ + | Care Rod Puller Name | Role | Phone | + [...] + + | 04/06/ | Navigation | [facility] | Mi Ma, | | | 2019 | Services | HEMATOLOGY AND | RN | | | | | ONCOLOGY [address] | | | | [address] | | | | | | [place] | | | | | | [address] | | | | | | [phone] | | | +--------+ + + + [...] gee navigator. Imaging/Screening Location: [facility] . 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 Treatment, Treatment team: Surgeon is Dr Michel, Medical Oncologist is Dr Mcintosh, NN is Mi Ma, RN, BSN, OCN Support systems: Patient said she is upset with her boyfriend and said she does not inten d to stay with him. When asked about friends, family, jew or other support systems she sa id she did not want to talk about it. Barriers and needs: Pt may need home health, transportation assistance for future appts de pending on the treatment plan. ONN plan: Will follow up on STAT CT scan, biopsy result and medical social worker needs. Pt's questions were answered [...] [place] | | | | | | [address] | | | | | | | | +--------+ + + + + | 04/12/ | Appointment | Radiology | Vinod Michel MD | | | 2019 | | | [address] | | | | | | [address] [place] | | | | | | [address] | | | | | | | | +--------+ + + + + | 04/12/ | Office | Oncology | Anisha Mcintosh MD | | | 2019 | Visit | | [address] | | | | | | [place] | | | | | | [address] | | | | | | | | +--------+ + + + + documented as of this encounter Visit Diagnoses Not on filedocumented in this encounter"
[~2019-04-09 19:03] MED LIST changes: +DICLOXACILLIN500 MG PO
--- OUTSIDE RECORDS SUMMARY | 2019-04-09 19:06 | XMS ---
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 - 2 Visits in 30 Days CARE PROVIDERS JEAN PAUL GRANGER [place] CANAVERAL [facility] PHONE: Unknown BANDAR GUSMAN [facility] PHONE: Unknown Jojo has no Care Guidelines for this patient. EDesiree VISIT COUNT (12 MO.) [address] TOTAL 3 NOTE: Visits indicate total known visits. ED/UCC VISIT TRACKING (12 MO.) 04/09/2019 19:03 [facility] [place] TYPE: Emergency COMPLAINT: - SOB 03/10/2019 12:07 [facility] [place] TYPE: Emergency DIAGNOSES: - PAIN/SWELLING L BREAST - PAIN/SWELLION L BREAST - Unspecified lump in the left breast, unspecified quadrant 04/26/2018 02:57 [facility] [place] TYPE: Emergency COMPLAINT: - L BREAST PAIN/ISSUES BREATHING DIAGNOSES: - Unspecified lump in unspecified breast - Mastodynia INPATIENT VISIT TRACKING (12 MO.) No inpatient visits to display in this time frame [id number]
--- NOTE | 2019-04-10 11:02 | EKG ---
[facility] [address] [place], [place] [address] Signed Normal sinus rhythm Low voltage QRS Cannot rule out Anterior infarct , age undetermined Abnormal ECG No previous ECGs available Confirmed by NAYELI DHILLON DO ([id number]) on 04/10/2019 11:01:46 AM Electronically Signed By: NAYELI DHILLON DO 04/10/19 1102 PATIENT NAME: FELIBERTOSAJI ALIE Electrocardiogram DATE OF : 69 PHYSICIAN: NAYELI DHILLON DO REPORT #: [id number] REPORT IS CONFIDENTIAL AND NOT TO BE RELEASED WITHOUT AUTHORIZATION
== END 2019-04-09 23:18 | disposition short-term general hospital (02) ==
LOC: ED 19:03
DX: C50.912 Malignant neoplasm of unspecified site of left female breast (principal); C78.7 Secondary malignant neoplasm of liver and intrahepatic bile duct; C79.89 Secondary malignant neoplasm of other specified sites; C79.51 Secondary malignant neoplasm of bone; E83.52 Hypercalcemia
CPT/HCPCS: 71045; 80053; 81001; 82330; 83605; 83735; 84484; 85025; 85610; 85730; 93005; 93010; 96361; 96374; 96375; 99285-25; J1170; J2405; J7030

== ENCOUNTER 2021-02-06 16:08 | Emergency (ER) | payer OTHER ==
[~2021-02-06] VITALS: Ht 175.3 cm; Wt 81.7 kg
--- OUTSIDE RECORDS SUMMARY | 2021-02-06 16:12 | XMS ---
PreManage Notification: SAJI DAO Security Leather Worker Events No recent Security Events currently on file CRITERIA MET - Group Notification - [employer] CARE PROVIDERS [employer] Physician Train Brakeman 04/12/2019-Current PHONE: [phone] Luigi Orellana Banquet Bartender/Health Economist 02/06/2020-Current PHONE: [phone] Jojo has no Care Guidelines for this patient. EDesiree VISIT COUNT (12 MO.) 1 NIKI Paredes TOTAL 1 NOTE: Visits indicate total known visits. ED/UCC VISIT TRACKING (12 MO.) 02/06/2021 16:[address] [facility] [place] TYPE: Emergency COMPLAINT: - L ANKLE SORE/PAINFUL INPATIENT VISIT TRACKING (12 MO.) No inpatient visits to display in this time frame [email or web address]
[2021-02-06] MEDS ORDERED: CLEOCIN HCL300 MG PO (18:58)
== END 2021-02-06 19:45 | disposition home or self-care (01) ==
LOC: ED 16:08
DX: S02.2XXA Fracture of nasal bones, initial encounter for closed fracture (principal); S60.222A Contusion of left hand, initial encounter; W22.8XXA Striking against or struck by other objects, initial encounter
CPT/HCPCS: 73590; 73630; 99283-25

== ENCOUNTER 2021-10-24 04:44 | Inpatient (IN) | payer OTHER ==
[~2021-10-24] VITALS: Ht 175.3 cm; Wt 79.9 kg
[~2021-10-24 04:44] MED LIST changes: +CLEOCIN HCL300 MG PO
--- OUTSIDE RECORDS SUMMARY | 2021-10-24 04:46 | XMS ---
PreManage Notification: SAJI DAO Security Department Director Events No recent Security Events currently on file CRITERIA MET - Group Notification - PDMP CARE PROVIDERS [facility] Nurse Practitioner: Adult Health 02/07/2021-Current PHONE: Unknown ROBLES BEAVER Physician Complaint Adjuster 04/12/2019-Current PHONE: [phone] Luigi Orellana Gas System Operator/Brush Trimming Machine Setter 02/06/2020-Current PHONE: [phone] Jojo has no Care Guidelines for this patient. E.D. VISIT COUNT (12 MO.) 2 NIKI Paredes TOTAL 2 NOTE: Visits indicate total known visits. ED/UCC VISIT TRACKING (12 MO.) 10/24/2021 04:44 NIKI Singh [place] TYPE: Emergency COMPLAINT: - WEAKNESS 02/06/2021 16:09 NIKI Singh OR TYPE: Emergency COMPLAINT: - L ANKLE SORE/PAINFUL DIAGNOSES: - Fracture of nasal bones, initial encounter for closed fracture - Striking against or struck by other objects, initial encounter - Contusion of left hand, initial encounter INPATIENT VISIT TRACKING (12 MO.) No inpatient visits to display in this time frame [email or web address]
--- NOTE | 2021-10-24 07:50 | NUR ---
REPORT RECEIVED FROM PAIRER SUBSTANDARD.PT TRANSPORTED FROM ER TO CCU ON SCOW HAND AND 5 L NC BY ADRI MARTINEZ. PT UNABLE TO MOVE SELF. AWAKENS WITH PAIN WHEN TRANSFERED AND THEN FALLS BACK ASLEEP. THIS RN IN ROOM TO COMPLETE INITIAL ADMISSION ASSESSMENT.
[2021-10-24] MEDS ORDERED: FENTANYL1 EAC3 TD (08:20)
[2021-10-24] MEDS ORDERED: SPIRONOLACTONE50 MG PO (08:21)
[2021-10-24] MEDS ORDERED: ALPRAZOLAM0.25 MG PO (08:22)
[2021-10-24] MEDS ORDERED: HYDROMORPHONE HC4 MG PO (08:24)
--- NOTE | 2021-10-24 08:32 | NUR ---
INITIAL ASSESSMENT COMPLETED. PT DROWSY. AWAKENS BRIEFLY AND REPORTS PAIN, GRIMACES AND CALLS OUT WITH MOEVMENT IN BED, AND THEN FALLS BACK TO SLEEP. PT HEART RATE 100 AT REST. REQUIRING 5-6 L NC AT THIS TIME. EPISODE OF APNEA LASTED 10 SECOND WITHSPO2 DOWN INTO THE 70S, SPO2 BROUGHT BACK UP INTO THE 90S WITH ADDITIONAL 10 L OM. PT NOW BACK ON 5 L NC. EXPIRATORY WHEEZE AND FINE CRACKLES IN BILATERAL LUNG BASES NOTED. PEDAL PULSES WEAK BUT FOUND BY DOPPLER. BILATERAL LOWER LEGS EDEMATOUS, WORSE ON THE LEFT. LEFT LEG 2+ EDEMA, REDNESS, AND WARM TO TOUCH. SON AT BEDSIDE AT THIS TIME TO REPORT HISTORY. STATES THE PT IS NORMALLY ALERT AND UP AND WALKING , PROVIDING ALL SELF CARES. PT HAS BEEN IN INCREASED PAIN AND TAKING MORE PAIN MEDICATION AND BENZOS FOR THE LAST FOUR DAYS PER SON. DISCUSSED PLAN OF CARE. BED ALARM IN PLACE, CALL LIGHT WITHIN REACH. WILL CONTINUE TO CLOSELY MONITOR.
--- NOTE | 2021-10-24 08:40 | NUR ---
ACCUCHECK DONE AT TIME OF PT ARRIVAL. BLOOD SUGAR 170.
--- NOTE | 2021-10-24 09:07 | NUR ---
PINEDA CATHETER INSERTED AT THIS TIME WITH THE ASSISTANCE OF NEVILLE DUMONT. 75 MLS OF CONCENTRATED URINE OUT WITH INITIAL INSERTION. WELL TOLERATED BY PT. PT'S SON REMAINS AT BEDSIDE.
--- NOTE | 2021-10-24 10:21 | NUR ---
DR CAMPOS IN ROOM TO ASSESS PATIENT. DISCUSSED PLAN OF CARE WITH SON AT THIS TIME. ALL QUESTIONS ANSWERED.
--- NOTE | 2021-10-24 10:23 | NUR ---
NO ANSWER FOR RECORDS AT [facility]. LEFT MESSAGE WITH CALL BACK NUMBER.
--- NOTE | 2021-10-24 11:37 | NUR ---
1030 IV INITIATED IN RIGHT FOREARM. PT REMAINS ONLY RESPONSIVE TO PAIN. IV CEFEPIME AND LEVOFLOXACIN NOW INFUSING. IV BOLUS INFUSING. 1100 PT URINE OUTPUT 25 MLS FOR THE HOUR. BLOOD PRESSURE [address] CAMPOS UPDATED. AND ADDITIONAL 500 ML BOLUS ORDERED (SEE EMAR). [address] ON INSTRUCTIONAL MEDIA SERVICES TECHNICIAN WITH FLOAT BOLIVAR MARTINEZ AT THIS TIME.
--- NOTE | 2021-10-24 12:00 | NUR ---
PT BACK FROM CT AT THIS TIME.
--- NOTE | 2021-10-24 12:05 | NUR ---
pt taken to ct in bed. pt tolerated fair. pt is painful to transfers. pt returned to ccu room 128. jose juan ashford in room.
--- NOTE | 2021-10-24 13:10 | NUR ---
PT'S OXYGEN TITRATED DOWN TO 3 L NC.
--- NOTE | 2021-10-24 15:30 | NUR ---
IN ROOM FOR ASSESSMENT. PT MORE ALERT AND AWAKE, NOW ASKING FOR WATER. DR CAMPOS IN ROOM TO RE EVALUATE PT. IV FLUID BOLUS ORDERED. US ORDERED AT THIS TIME WELL. HEART DAGO IN THE 90S AT REST. PT NOW ON ROOM AIR WITH SPO2 = 92%, NO CHANGES IN LOWER LEG EDEMA AND REDNESS. SON REMAINS ASLEEP AT BEDSIDE. CALL LIGHT WITHIN REACH. WILL CONTINUE TO MONITOR.
--- NOTE | 2021-10-24 16:30 | NUR ---
UX INTERACTION DESIGNER IN ROOM AT THIS TIME
--- NOTE | 2021-10-24 17:00 | NUR ---
DR CAMPOS UPDATED ON PTS LOW URINE OUTPUT AND SYSTOLIC BLOOD PRESSURES INTHE 70S. ORDER RECEIVED FOR 500 ML LR BOLUS, NOREPINEPHRINE DRIP, AND IV ALBUMIN.
--- NOTE | 2021-10-24 17:00 | NUR ---
Spoke with pt and son, German. Pt cognitively impaired at this time and very dehydrated. Mouth is full of dried chunks. She continues to beg for water or ice. Few ice chips given by RN as they cont. work up. Son states mom has been ill since 2019. He was her cg, but eventually moved out due to issues. He states he saw mom 4-5 days ago and she was walking and doing ok for her condition. She has continued to decline over the last few years. 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 Pt states she lives alone, son clarifies she has a boyfriend, Morro, he comes and goes. Pt is disabled and on medicare and [place]. Will check with admitting about this. Pt stating clearly she will go home. Will work with pt and son for safe discharge.
--- NOTE | 2021-10-24 17:36 | NUR ---
500 ML LR BOLUS STARTED ALONG SIDE OF ALBUMIN, AND NOREPI STARTED AT 2 MCG/MIN.
--- NOTE | 2021-10-24 18:30 | NUR ---
ALBUMIN COMPLETED. BOLUS DONE INFUSING. IV FLUIDS AND CEFEPIME INFUSING WELL. CALL LIGHT WITHIN REACH. WILL CONTINUE TO MONITOR.
--- NOTE | 2021-10-24 20:01 | NUR ---
PT GIVEN 2MG PO DILAUDID FOR PAIN, DRANK WATER WITHOUT DIFFICULTY. URINE OUTPUT OVER THE LAST HOUR WAS 60ML.
--- NOTE | 2021-10-24 21:16 | NUR ---
PT STILL QUITE PAINFUL, CONSTANTLY TRYING TO REPOSITION FOR COMFORT, PAINFUL TO TOUCH AND MOVE MOST AREAS OF HER BODY. ADDITIONAL 2MG PO DILAUDID GIVENL.
--- NOTE | 2021-10-24 21:20 | NUR ---
PT NOREPINEPHRINE DRIP STOPPED AT THIS TIME. B/P 98/66 [id number]
--- NOTE | 2021-10-24 22:05 | NUR ---
PT NOTED TO DESATURATE AT THIS TIME AND IS DROWSY BUT AWAKES EASILY. PT PLACED ON 5L O2 OXYMASK TO MAINTAIN SPO2 ABOVE 90%. PT REMAINS IN BED SLEEPING, IVF INFUSING ORDERED, WILL CONTINUE PLAN OF CARE.
--- NOTE | 2021-10-24 22:43 | NUR ---
PT RESTING QUIETLY IN BED NO DISTRESS NOTED, EYES CLOSED, SHE IS ON 6L OXYGEN WHILE SLEEPING, ALSO NOTED APNIC EPISODES OF UP TO 3 SEC.
--- NOTE | 2021-10-24 23:05 | NUR ---
PT LAYING IN BED SLEEPING AT THIS TIME. PT DROWSY BUT AWAKES EASILY, SPO2 MONTIOR CHANGED, PT OXYMASK REMOVED AND PT PLACED ON 6L O2 NC, SPO2 95-100%. WILL TITRATE DOWN NEEDED. PT NOW BACK TO SLEEP, IVF AND IV ABX INFUSING ORDERED, WILL CONTINUE PLAN OF CARE.
--- NOTE | 2021-10-25 01:20 | NUR ---
PT PLACED ON ROOM AIR AT THIS TIME SPO2 WAS 100% ON 3L O2 NC. PT SPO2 REMAINING AT 100%. PT THEN REPOSITIONED PER HER REQUEST. PT DROWSY AT THIS TIME BUT AWAKES EASILY AND ANSWERS QUESTIONS. PT RETURNED BACK TO SLEEP AFTERWARDS, NO NEEDS ASSESSED AT THIS TIME, WILL CONTINUE PLAN OF CARE.
--- NOTE | 2021-10-25 02:13 | NUR ---
PT NOW RESTING QUIETLY IN BED EYES CLOSED RESP REGULAR 20 BPM. PT SLEEPING BUT AROUSABLE.
--- NOTE | 2021-10-25 03:18 | NUR ---
SCHEDULED CEFEPIME ADMINISTERED AT THIS TIME (SEE MAR). IVF AND CEFEPIME INFUSING AT ORDERED RATE, WILL CONTINUE PLAN OF CARE.
--- NOTE | 2021-10-25 04:31 | NUR ---
PT CALLING OUT VERBALLY. THIS RN AND RN KHALIDA IN TO ROOM. PT REPOSITIONED IN BED PER HER REQUEST. PT REPORTS PAIN "ALL OVER" AND REQUESTED PRN PAIN MEDICATION. PRN PO DILAUDID ADMINSTERED AT THIS TIME (SEE MAR). PT REMAINS RESTING IN BED AT THIS TIME, BOLIVAR WALL NOW IN ROOM AT THE BEDSIDE. WILL CONTINUE PLAN OF CARE.
--- NOTE | 2021-10-25 04:32 | NUR ---
PT ALERT AT THIS TIME, SHE IS NOT ORIENTED TO TIME, PLACE, OR EVENT. SHE IS ANXIOUS, SHE SAID "I JUST WANT SOMEONE TO STAY IN HERE ALL THE TIME" DISCUSSED WITH PT THAT STAFF CAN NOT STAY IN ROOM ALL THE TIME, BUT THAT WE WILL ROUND REGULAR AND STAFF/NURSES STATION IS JUST OUTSIDE HER DOOR. PT NODDED HER HEAD. RED AREAS ON HER THIGHS, BLE OUTLINES AT THIS TIME. AND BLOOD DRAWN FROM HER PORT FOR LABS THIS AM. BRISK BLOOD RETURN.
--- NOTE | 2021-10-25 06:38 | NUR ---
PT SLEEPING IN BED ON ROOM AIR. RESPIRATIONS NOTED AND ARE UNLABORED. NEW BAG OF D5LR STARTED AND INFUSING AT ORDERED RATE. PINEDA PATENT, OUTPUT ACCOUNTED FOR. NO FURTHER NEEDS AT THIS TIME, PT IN NO APPARENT DISTRESS, WILL CONTINUE PLAN OF CARE.
--- NOTE | 2021-10-25 08:54 | NUR ---
ASSESSMENT COMPLETED. PT ALERT AND ORIENTED X3. REPORTS PAIN "EVERYWHERE" HEART RATE IN THE 70S. AFEBRILE. BLOOD PRESSURE SYSTOLICALLY IN THE 90S, MAPS GREATER THAN 65. RASH ON TORSO HAS NOT WORSENED, STILL REDDENED AND WARM TO TOUCH. ABX, IVF, AND MAGNESIUM CONTINUE TO INFUSE. PRN ORAL DILAUDID GIVEN FOR PAIN. CALL LIGHT WITHIN REACH. WILL CONTINUE TO MONITOR.
--- NOTE | 2021-10-25 08:56 | NUR ---
PATIENT AWAKE IN BED. SON WAS HERE THIS MORNING AND HAS SINCE GONE HOME TO GET SOME SLEEP. PATIENT ATE 5 BITES OF BREAKFAST AND DRANK SOME JUICE AND WATER. FACE AND HANDS WASHED, PINEDA EMPTIED. CALL LIGHT IN REACH
--- NOTE | 2021-10-25 10:00 | NUR ---
DURING BED BATH NOTED THAT PTS FACE BECAME EXTREMELY BEAT RED. ALSO REDNESS AND WARMTH AT LEFT BREAST AREA AND ON BACK. DR CAMPOS UPDATED. WILL CONTINUE TO MONITOR. PT EXTREMELY PAINFUL WITH TURNING AND MOVEMENT. PRN PAIN MEDICATION ADMINISTERED (SEE EMAR).
--- NOTE | 2021-10-25 10:34 | NUR ---
PATIENT ADMITTED AT HIGH RISK FOR MALNUTRITION DUE TO POOR APPETITE AND UNSURE OF WEIGHT LOSS. PATIENT HAS BREAST CA WITH METS. SHE IS ON A REGULAR DIET. ONLY AT 5 BITES OF BREAKFAST. WILL ADD ENSURES WITH MEALS. BMI IS 26.6. WILL CONTINUE TO MONITOR.
--- NOTE | 2021-10-25 10:36 | NUR ---
BED BATH AND PINEDA CARE PROVIDED. PATIENT IS VERY PAINFUL WITH ACTIVITY AND UNABLE TO RAISE EITHER ARM WITHOUT ASSISTANCE. PATIENT WAS INCONTINENT OF SMALL STOOL. PATIENT NOW HAS NOTICABLE REDNESS ON LEFT BREAST AREA, AROUND TO HER BACK AND ON FACE. RN AWARE. PATIENT REPOSITIONED ONTO LEFT SIDE, PILLOW SUPPORTING. CALL LIGHT IN EASY REACH
--- NOTE | 2021-10-25 12:14 | NUR ---
ASSESSMENT COMPLETED. PT DROWSY. AWAKENS TO TOUCH. COMPLAINS OF PAIN IN LEGS AND GENERALIZED DISCOMFORT. REFUSES TO BE TURNED AT THIS TIME. IV FLUIDS AND ABX INFUSIGN. CALL LIGHT WITHIN REACH.
--- NOTE | 2021-10-25 13:23 | NUR ---
PT CRYING OUT IN PAIN, ANXIOUS, UNABLE TO ASSIST PT IN FINDING A COMFORTABLE POSITION. THERAPEUTIC COMMUNICATION. PRN MEDICATION FOR ANXIETY GIVEN (SEE EMAR).
--- NOTE | 2021-10-25 14:09 | NUR ---
PT NOW APPEARS TO BE RESTING COMFORTABLY. BREATHING EVEN AND UNLABORED. SPO2 = 98%. WILL CONTINUE TO MONITOR.
--- NOTE | 2021-10-25 15:54 | EKG ---
[facility] [address] [place] [address] Signed Normal sinus rhythm Normal ECG When compared with ECG of 09-APR-2019 19:11, Minimal criteria for Anterior infarct are no longer present Nonspecific T wave abnormality no longer evident in Anterolateral leads QT has lengthened Confirmed by NATHANIEL CAMPOS MD ([id number]) on 10/25/2021 3:54:24 PM Electronically Signed By: NATHANIEL CAMPOS MD 10/25/21 1554 PATIENT NAME: SAJI DAO Electrocardiogram DATE OF : 69 PHYSICIAN: NATHANIEL CAMPOS MD REPORT #: [id number] REPORT IS CONFIDENTIAL AND NOT TO BE RELEASED WITHOUT AUTHORIZATION
--- NOTE | 2021-10-25 16:00 | NUR ---
Update from Rn, pt remains ill.
--- NOTE | 2021-10-25 16:44 | NUR ---
ASSESSMENT COMPLETED. PT REPOSTIONED IN BED AT THIS TIME FOR COMFORT. PILLOWS PLACED ON BOTH SIDES. PT PAINFUL WITH ANY MOVEMENT. REPORTS PAIN IN NECK, LEGS, ARMS, AND BACK. SIGNIFICANT OTHER AT BEDSIDE. HEAT PAD PLACED ON NECK FOR COMFORT. CALL LIGHT WITHIN REACH. WILL CONTINUE TO MONITOR.
--- NOTE | 2021-10-25 17:10 | NUR ---
PT REFUSED MEDICATIONS FOR BOWEL CARE. DISCUSSED THE IMPORTANCE OF MEDICATION. PT STATES "THATS NOT WHAT I WANT."
--- NOTE | 2021-10-25 20:00 | NUR ---
REPORT RECEIVED FROM DAY SHIFT RN. PT CRYING OUT IN PAIN. PRN PAIN MEDICATION ADMINISTERED ORDERED. PT REPOSITIONED TOLERATED. VSS. CALL LIGHT AT HAND. WILL CONTINUE TO MONITOR.
--- NOTE | 2021-10-25 21:37 | NUR ---
PT CONTINUES CRYING OUT IN PAIN FOLLOWING ADMINISTRATION OF PRN PAIN MEDICATIONS. PROVIDER NOTIFIED. PT IS TOLERATING IVF AND ABX ORDERED. PINEDA CATHETER IN PLACE AND DRAINING URINE. VSS. RESPIRATIONS EVEN AND UNLABORED. CALL LIGHT WITHIN REACH. WILL CONTINUE TO MONITOR.
--- NOTE | 2021-10-26 00:27 | NUR ---
NEW ORDERS RECEIVED FOR PRN PAIN MEDICATION. ADMINISTERED ORDERED AND HELPFUL. PT IS RESTING IN BED WITH HER EYES CLOSED AND APPEARS COMFORTABLE. VSS. RESPIRATIONS EVEN AND UNLABORED. CALL LIGHT AT HAND. WILL CONTINUE TO MONITOR.
--- NOTE | 2021-10-26 02:30 | NUR ---
PT RESTING IN BED WITH HER EYES CLOSED AND APPEARS COMFORTABLE. NO SIGNS OF PAIN/DISCOMFORT NOTED AT THIS TIME. VERBALIZES NEEDS APPROPRIATELY. CALL LIGHT WITHIN REACH. VSS. WILL CONTINUE TO MONITOR.
--- NOTE | 2021-10-26 04:38 | NUR ---
PT RESTING IN BED WITH HER EYES CLOSED AND APPEARS
--- NOTE | 2021-10-26 04:48 | NUR ---
PT RESTING IN BED WITH HER EYES CLOSED AND APPEARS COMFORTABLE. VSS. RESPIRATIONS EVEN AND UNLABORED. CALL LIGHT AT HAND. WILL CONTINUE TO MONITOR.
--- NOTE | 2021-10-26 07:30 | NUR ---
REPORT RECIEVED, CARE OF PT ASSUMED AT THIS TIME. PT IN A DEEP SLEEP. RESPIRATIONS EVEN AND UNLABORED. SPO2 = 96% ON ROOM AIR. CALL LIGHT WITHIN REACH. WILL CONTINUE TO MONITOR.
--- NOTE | 2021-10-26 07:47 | NUR ---
PATIENT SLEEPING COMFORTBALY IN BED. WILL REAPPOACH AT MEAL TIME. CALL LIGHT IN REACH.
--- NOTE | 2021-10-26 07:50 | NUR ---
Pt sleeping, not awakened. Per notes yesterday, slight improvement.
--- NOTE | 2021-10-26 08:35 | NUR ---
PT REFUSED MEAL, STILL SLEEPING. NURSE NOTIFIED WILL APPROACH WHEN AWAKE ABOUT ADL'S AND BATHING.
--- NOTE | 2021-10-26 09:15 | NUR ---
IN ROOM AT THIS TIME FOR ASSESSMENT AND MEDICATION ADMINISTRATION. PT REMAINS IN A DEEP SLEEP. AUDIBLE EXPIRATORY WHEEZE NOTED. LEFT LOWER EXTREMITY IS LESS RED AND WARM. RASH ON THIGHS AND ABDOMEN MORE RED AND HAS SPREAD BEYOND THE MARKED BORDERS. RASH ON LEFT CHEST ALSO RED AND HOT TO TOUCH. IV FLUIDS INFUSING. HIWOT SENT TO LAB. THIS RN AT BEDSIDE.
--- NOTE | 2021-10-26 09:54 | NUR ---
PT TAKEN OFF THE BIPAP AT THIS TIME AND PLACED BACK ON 8 L NC. ORAL TEMPERATURE DOWN TO 100.0. PT'S AT BEDSIDE. CALL LIGHT WITHIN REACH. WILL CONTINUE TO MONITOR.
--- NOTE | 2021-10-26 10:30 | NUR ---
DR CAMPOS IN ROOM FOR ASSESSMENT. PLAN OF CARE FOR AFTERNOON ESTABLISHED. PT SIGNIFICANT OTHER NOW AT PT BEDSIDE.
--- NOTE | 2021-10-26 10:42 | NUR ---
REPOSITIONED PATIENT IN BED, TWO PILLOWS NOW UNDER RIGHT SIDE. WIPED DOWN PATIENTS FACE ARMPITS AND DID CASE/CATHEDER CARE. PATIENT HAD COMPLAINTS OF PAIN. NURSE WAS IN ROOM AND GAVE MEDS NEEDED, CALL LIGHT IN REACH.
--- NOTE | 2021-10-26 11:30 | NUR ---
ABX INFUSING. PT NO LONGER CRYING OUT IN PAIN. BREATHING EVEN AND UNLABORED. CALL LIGHT WITHIN REACH. WILL CONTINUE TO MONITOR.
--- NOTE | 2021-10-26 12:37 | NUR ---
ASSESSMENT COMPLETED. IV MAGNESIUM AND FLUIDS INFUSING. PT ASLEEP THROUGH ASSESSMENT, AWAKENS TO VOICE AND THEN FALLS BACK TO SLEEP. REDNESS ON RASCH TO LEFT CHEST HAS DECREASED SINCE LAST ASSESSMENT. NO OTHER NOTED CHANGES. CALL LIGHT WITHIN REACH. WILL CONTINUE TO MONITOR.
--- NOTE | 2021-10-26 13:15 | NUR ---
PT IN BED SLEEPING COMFORTABLY. EMPTIED PINEDA AND DOCUMENTED OUTPUT. CALL LIGHT WITHIN REACH.
--- NOTE | 2021-10-26 14:52 | NUR ---
PT STILL SLEEPING COMFORTABLY, EMPTIED PINEDA, DRAINED, AND DOCUMENTED. CALL LIGHT WITHIN REACH.
--- NOTE | 2021-10-26 16:51 | NUR ---
ASSESSMENT COMPLETED. PT CRYING OUT. DRAW SHEET AND PILLOW CASES CHANGED. UPON EXAMINATION. REDNESS ON BACK HAS INCREASED. ALSO NOTE UPON ASSESSMENT WAS SIGNIFICANT VAGINAL SWELLING. ATTEMPTED TO POSITION PT COMFORTABLY. PRN PAIN MEDICATION ADMINISTERED.
--- NOTE | 2021-10-26 18:05 | NUR ---
DR JETER UPDATED ON PTS PAIN, ANXIETY, AND OTHER ASSESSMENT FINDINGS INCUDING RASH AND SWELLING IN VAGINIA. ORDERS RECIEVED (SEE EMAR).
--- NOTE | 2021-10-26 22:41 | NUR ---
REPORT RECEIVED FROM DAY SHIFT RN. PT IS RESTING IN BED WITH HER EYES CLOSED AT THIS TIME AND APPEARS COMFORTABLE WITHOUT NOTED DISTRESS. VSS. RESPIRATIONS EVEN AND UNLABORED. CALL LIGHT WITHIN REACH. WILL CONTINUE TO MONITOR.
--- NOTE | 2021-10-27 02:13 | NUR ---
PT IS RESTING IN BED WITH HER EYES CLOSED AND APPEARS COMFORTABLE. VSS. RESPIRATIONS EVEN AND UNLABORED. CALL LIGHT WITHIN REACH. WILL CONTINUE TO MONITOR.
--- NOTE | 2021-10-27 04:00 | NUR ---
PT CRYING OUT IN PAIN EARLY THIS AM. PRNs ADMINISTERED ORDERED. PT TOLERATING IV ABX ORDERED. PINEDA IN PLACE. VSS. AFEBRILE. RESPIRATIONS EVEN AND UNLABORED. CALL LIGHT WITHIN REACH. WILL CONT TO MONITOR.
--- NOTE | 2021-10-27 06:46 | NUR ---
CRITICAL LAB VALUE REPORTED BY LAB- MD NOTIFIED. NO NEW ORDERS RECEIVED. WILL CONTINUE TO MONITOR.
--- NOTE | 2021-10-27 08:22 | NUR ---
IN PATIENT'S ROOM FOR ASSESSMENT, MEDS, VITALS. PT ASLEEP, AND DIFFICULT TO AROUSE BUT APPEARS IN NO ACUTE DISTRESS. SP02 IS 99% ON ROOM AIR. LUNGS HAVE EXP WHEEZING HEARD THROUGHOUT. IVF ARE INFUSING INTO RIGHT CHEST PORT AT 85 ML/HR. PINEDA DRAINING CONCENTRATED URINE. IV MAG STARTED. DR. JETER INTO ROOM TO SEE PATIENT AND PLAN OF CARE DISCUSSED. PT MAY RECEIVE PLATELETS TODAY PER DR. JETER PLATELETS ARE 14 THIS AM. RASH EVALUATED ON BODY AND SEEMS TO BE SLIGHTLY IMPROVED COMPARED TO PURPLE OUTLINES ON SKIN, ONLY EXCEEDING PURPLE LINES ON RIGHT UPPER THIGH AREA. AFEBRILE THIS AM. WILL CONTINUE TO MONITOR.
--- NOTE | 2021-10-27 08:59 | NUR ---
LAB IN ROOM TO COLLECT BLOOD FOR TYPE AND SCREEN AND CROSSMATCH. BLOOD DRAWN BY THIS RN FROM RIGHT PORTACATH AFTER FLUIDS BEING STOPPED, LINE FLUSHED WITH 10 ML, AND DISCARDING 5 ML OF BLOOD. PT REMAINS DROWSY AND SLEEPING AT THIS TIME. WILL CONTINUE TO MONITOR.
--- NOTE | 2021-10-27 11:07 | NUR ---
PATIENT REMAINS SLEEPING IN BED, AND STILL NOT VERY RESPONSIVE. PER REPORT, PATIENT HAS BEEN GOING FROM A STATE OF LETHARGY LIKE THIS, TO FULLY AWAKE AND SCREAMING OUT/CRYING OUT IN PAIN. PER AM BLOOD WORK, GLUCOSE WAS ONLY 79. PT WAS NOT AWAKE ENOUGH TO EAT ANYTHING THIS AM, THEREFORE CBG CHECKED AT THIS TIME AND FOUND TO BE 58. D5 LR INFUSING AT 85 ML/HR. DR. JETER CALLED TO UPDATE ON THIS AND PENDING ORDERS AT THIS TIME. WILL CONTINUE TO MONITOR.
--- NOTE | 2021-10-27 11:55 | NUR ---
THIS RN GAVE PRN D50 PER ORDERS FOR A BLOOD SUGAR IN THE 50'S. SEE MARKREmma LOZADA IN TO RECHECK BLOOD SUGAR AND IT CAME UP TO 98 CURRENTLY. WILL CONTINUE TO CLOSELY MONITOR BLOOD SUGARS.
--- NOTE | 2021-10-27 12:11 | NUR ---
THIS RN IN TO GIVE PATIENTS SIGNIFICANT OTHER AN UPDATE WHO IS CURRENTLY AT THE BEDSIDE. NO OTHER CHANGES AT THIS TIME.
--- NOTE | 2021-10-27 13:51 | NUR ---
PATIENT CONTINUES TO SLEEP AT THIS TIME AND IS DROWSY, DOES NOT AWAKEN TO VOICE OR PAINFUL STIMULI. PATIENT'S LIBRARIAN GIVING BEDBATH AT THIS TIME. WILL CONTINUE TO MONITOR.
--- NOTE | 2021-10-27 14:31 | NUR ---
COMPLETE BEDBATH ON PT DONE W/FULL BED CHANGE WITH BOLIVAR WOODSON HELP. CATH CARE WAS PERFORMED. PT WAS IN SOME PAIN WHILE TURNING BUT IS MORE RELAXED AFTER CARES. ORAL CARE WAS PERFORMED W/SWABS/WASH. PT HAS BILATERALL PILLOWS ON TOP AND BOTTOM FOR ELEVATION.CALL LIGHT IN PT REACH.
--- NOTE | 2021-10-27 15:47 | NUR ---
BED BATH AND LINEN CHANGE GIVEN PER APARTMENT HOUSE MANAGER. THIS RN ASSISTED WITH ROLLING PATIENT SIDE TO SIDE AND CLEANSING HER BACK. PT'S LABIA ON RIGHT SIDE IS EDEMATOUS, AND PROTRUDING IT SEEMS. MD AWARE AND MD REQUESTING THAT WE KEEP THIS AREA MOISTENED WITH SALINE SOAKED GAUZE. THIS WAS PLACED ON LABIA WITH GAUZE AND THEN AN ABD PAD PLACED OVER THE AREA. 1 UNIT OF PLATELETS STARTED AT 1540 ON STRAIGHT TUBING, DRIPPING SLOWLY FOR THE FIRST 15 MINUTES. CBC TO BE DRAWN AFTER PLATELETS HAVE INFUSED, WELL AMMONIA. PT HAS REMAINED MOSTLY OBTUNED/VERY DROWSY ALL DAY, BUT IS NOW STARTING TO MOAN AND CRY OUT SOME. FENTANYL PATCH REMAINS ON RIGHT SHOULDER. PT'S RASH REMAINS PRESENT THROUGOUT BODY AND EXCEEDS PURPLE SKIN MARKER ON LEFT THIGH AT THIS TIME. HR IN THE 80s. LAST BP 112/74. SP02 IS 97% ON ROOM AIR. PT STILL HAS EXP WHEEZING HEARD THROUGHOUT LUNG UPPER GUDINO. URINE OUTPUT REMAINS CONCENTRATED. CONTINUE TO MONITOR.
[2021-10-27] MEDS ORDERED: FUROSEMIDE20 MG PO (16:47)
[2021-10-27] MEDS ORDERED: BACLOFEN5 MG PO (16:48)
[2021-10-27] MEDS ORDERED: DULOXETINE HCL60 MG PO (16:48)
--- NOTE | 2021-10-27 17:22 | NUR ---
DR. JETER CALLED AND UPDATED ON MOST RECENT BLOOD CULTURE SENSITIVITY REPORT, AND RESULTS GIVEN HER TO ON THE PHONE. PENDING ORDERS. CBC AND AMMONIA BEING DRAWN FROM PORT.
--- NOTE | 2021-10-27 18:02 | NUR ---
UPDATED MD JETER OF LAB RESULTS. PER GIVE AN 1 MORE UNIT OF PLATELETS. ORDER PLACED AND LAB NOTIFIED. TANK BUILDER NOTIFIED STAFF THEY WILL GET ONE ORDERED, BUT WILL TAKE APPROX. 4 HOURS FOR ARRIVAL. PATIENTS CONDITION REMAINS UNCHANGED AT THIS TIME. PATIENT RESTING IN BED WITH OCCASIONAL MOANING NOTED. PATIENT VITALS STABLE.
--- NOTE | 2021-10-27 18:16 | NUR ---
PATIENTS BLOOD SUGAR WAS IN THE 50'S UPON PRN CHECK. PRN ORDER GIVEN OF D50 PER ORDERS ON EMAR. SEE EMAR FOR ADMINISTRATION. WILL RECHECK IN 15 MINUTES.
--- NOTE | 2021-10-27 18:51 | NUR ---
MD DESAICH IN TO CHECK ON PATIENTS. UPDATED MD ON PATIENTS BLOOD SUGARS. PATIENTS BLOOD SUGAR 58 AND ON 15 MINUTE RECHECK IT WAS 84. NO OTHER PRNS NEEDED FOR 84 BLOOD SUGAR AT THIS TIME. MD JETER IN TALKING WITH PATIENTS DAVID SHINE ABOUT PLAN OF CARE. WILL CONTINUE TO CLOSELY MONITOR.
--- NOTE | 2021-10-27 20:00 | NUR ---
REPORT RECEIVED FROM DAY SHIFT RN. PT IS LYING IN BED MOANING OUT W/ HER SON AT BEDSIDE. REPOSITIONED W/ MAX ASSIST. PINEDA PATENT. TOLERATING IVF VIA RT PORTACATH. CALL LIGHT WITHIN REACH. VSS. RESPIRATIONS ARE EVEN AND UNLABORED. WILL CONTINUE TO MONITOR.
--- NOTE | 2021-10-27 22:31 | NUR ---
BG 66- PRN DEXTROSE ADMINISTERED IV ORDERED FOR BG < 70. PRN PAIN MEDICATION ADMINISTERED- SEE EMAR FOR ADDITIONAL INFO. VSS. NO APPARENT DISTRESS NOTED AT THIS TIME. RESPIRATIONS ARE EVEN AND UNLABORED. PINEDA PATENT. CALL LIGHT WITHIN REACH. WILL CONTINUE TO MONITOR.
--- NOTE | 2021-10-28 00:30 | NUR ---
TELEPHONE ORDER READ BACK TO INCREASE RATE OF D5LR FROM 85 ML/HR TO 100 ML/HR. RECEIVED CALL FROM LAB THAT PLATELETS WERE READY. PLATELETS VERIFIED W/ SECOND RN- CURRENTLY INFUSING W/O NOTED ADVERSE EFFECT. VSS. NO DISTRESS NOTED. WILL CONTINUE TO MONITOR.
--- NOTE | 2021-10-28 02:06 | NUR ---
PT IS RESTING IN BED W/ HER EYES CLOSED AND APPEARS COMFORTABLE AT THIS TIME. TOLERATING IVF ORDERED. VSS. NO DISTRESS NOTED. RESPIRATIONS EVEN AND UNLABORED. CALL LIGHT AT HAND. WILL CONTINUE TO MONITOR.
--- NOTE | 2021-10-28 04:00 | NUR ---
RESTING IN BED WITH EYES CLOSED. APPEARS COMFORTABLE. CALL LIGHT AT HAND. VSS. WILL CONT TO MONITOR.
--- NOTE | 2021-10-28 07:22 | NUR ---
RECEIVED CALL FROM LAB- PLATELETS 37; PROVIDER NOTIFIED. VSS. NO DISTRESS NOTED. CALL LIGHT AT HAND. WILL CONTINUE TO MONITOR.
--- NOTE | 2021-10-28 09:43 | NUR ---
THIS CNA2 PERFORMED CATH CARE, WASHED FACE/HANDS ON PT. SHE WAS RESPONSIVE TO AWARENESS OF CARES WITH A "YES". PT REFUSED ORAL CARE W/PURSED LIPS. WILL ATTEMPT ORAL CARE LATER IN THE SHIFT. CALL LIGHT IN REACH OF PT.
--- NOTE | 2021-10-28 13:58 | NUR ---
PATIENT TURNED TO LEFT SIDE. PT TOLERATED FAIR, BUT DOES CRY OUT AND IS UNCOMFORTABLE WITH THIS MOVEMENT.
--- NOTE | 2021-10-28 14:14 | NUR ---
PT CRYING OUT. STATES SHE IS HURTING IN HER BACK AND NECK. GIVEN ATIVAN AND DILAUDID. PT ABLE TO SWALLOW WELL.
--- NOTE | 2021-10-28 14:26 | NUR ---
Medications reconciled using pharmacy records
--- NOTE | 2021-10-28 14:26 | NUR ---
PATIENT GIVEN DILAUDID AND ATIVAN PO. PT WAS MOANING OUT AND CRYING OUT, AND WAS HARD TO GET HER TO TAKE A SIP OF WATER, BUT ONCE SHE REALIZED THE STRAW WAS NEAR SHE WAS ABLE TO DRINK WATER WITHOUT ANY COUGHING OR CHOKING. PILLS PLACED INSIDE PATIENT'S MOUTH AND AGAIN ABLE TO SWALLOW THEM WITHOUT DIFFICULTY. PT STILL UNCOMFORTABLE AND MOANS OUT, "I NEED TO FLIP OVER." HELPED PATIENT TO TRY AND FIND A POSITION OF COMFORT. CONTINUE TO MONITOR.
--- NOTE | 2021-10-28 15:15 | NUR ---
BEDBATH W/SOAP & WATER PERFORMED. SHAMPOO CAP/HAIR COMBED. PARTIAL LINEN CHANGED. PILLOWS PROPPED BILATTERALLY ON TOP LEGS ELEVATED. PT WAS APPROPRIATLY RESPONSIVE TO [place]. REFUSED ORAL CARE AT THIS TIME WITH PURSED LIPS AND A HEADSHAKE NO. PT WAS REPOSITIONED BY THIS CNA2/BOLIVAR CHATTERJEE. RESTING COMFORTABLY IN BED AT THIS TIME. CALL LIGHT NEXT TO PT.
--- NOTE | 2021-10-28 15:54 | NUR ---
TPN STARTED PER ORDER. PT IS MOANING/CRYING OUT IN DISCOMFORT BUT UNABLE TO TELL STAFF WHERE SHE IS HURTING. PT MOVING RIGHT ARM UP TOWARDS HER HEAD AND OVERALL APPERAS UNCOMFORTABLE. WHEN ASKING PATIENT IF SHE WANTS TO REPOSITION IN BED SHE MUMBLES, "I DONT' KNOW." PT REMAINS AFEBRILE AT THIS TIME. RASH IS LESS RED THAN IT WAS YESTERDAY AND THIS AM, SHOWING SIGNS OF IMPROVEMENT. URINE REMAINS CONCENTRATED.
--- NOTE | 2021-10-28 18:03 | NUR ---
PATIENT REPOSITIONED IN BED FOR COMFORT. TPN INFUSING INTO RIGHT PORTACATH W/O PROBLEM. PT REMAINS ON ROOM AIR, STILL HAVING EXP WHEEZING HEARD EASILY. PINEDA CONTINUES TO DRAIN CONCENTRATED URINE. CBG CHECKS ARE Q6 WITH THE NEXT DUE AT 1999. WILL ATTEMPT TO GET PATIENT UP TO CHAIR TOMORROW WITH SUDHAKAR LIFT IF PT TOLERATES. NO FEVERS THROUGHOUT THE DAY. CONTINUE TO MONITOR.
--- NOTE | 2021-10-28 20:00 | NUR ---
REPORT RECEIVED FROM DAY SHIFT RN. PT IS RESTING IN BED WITH HER EYES CLOSED AND MOANING OUT OCCASIONALY. CALL LIGHT AT HAND. TOLERATING TPN ORDERED. EDWIN GABRIEL. VSS. RESPIRATIONS EVEN AND UNLABORED. WILL CONTINUE TO MONITOR.
--- NOTE | 2021-10-28 22:06 | NUR ---
PT IS LYING IN BED- REPOSITIONED W/ ASSISTANCE. CONTINUES TO MOAN OUT OCCASIONALY. PT'S SON IS SITTING AT BEDSIDE. PINEDA PATENT. TOLERATING TPN VIA PORTACATH. VSS. RESPIRATIONS EVEN AND UNLABORED W/O ANY NOTED DISTRESS. CALL LIGHT WITHIN REACH. WILL CONTINUE TO MONITOR.
--- NOTE | 2021-10-29 00:11 | NUR ---
PT LYING IN BED. MOANS OUT PERIODICALLY. REPOSITIONED IN BED W/ MAX ASSIST. TOLERATING HYGEINE CARE. TOLERATING TPN VIA PORTACATH. PINEDA PATENT. VSS. CALL LIGHT WITHIN REACH. WILL CONTINUE TO MONITOR.
--- NOTE | 2021-10-29 01:26 | NUR ---
VSS. RESPIRATIONS EVEN AND UNLABORED. NO DISTRESS NOTED. AFEBRILE. TOLERATING TPN PER ORDER. PINEDA PATENT WITH ADEQUATE OUTPUT. CALL LIGHT WITHIN REACH. WILL CONTINUE TO MONITOR.
--- NOTE | 2021-10-29 03:40 | NUR ---
REPOSITIONED W/ MAX ASSIST. PT COMPLIANT W/ CARES AND LINEN CHANGE. TOLERATING TPN VIA PORTACATH. PINEDA PATENT W/ ADEQUATE OUTPUT. VSS. RESPIRATIONS EVEN AND UNLABORED. NO DISTRESS NOTED. CALL LIGHT WITHIN REACH. WILL CONTINUE TO MONITOR.
--- NOTE | 2021-10-29 05:50 | NUR ---
REPOSITIONED W/ MAX ASSIST. MENTATION APPEARS TO BE IMPROVING- PT IS MORE VERBAL THIS AM W/ MORE PURPOSEFUL MOVEMENT OF EXTREMITIES. TOLERATING TPN ORDERED. PINEDA PATENT. VSS. RESPIRATIONS ARE EVEN AND UNLABORED. CALL LIGHT WITHIN REACH. WILL CONTINUE TO MONITOR.
--- NOTE | 2021-10-29 08:00 | NUR ---
Attempted to speak with Nancy. She is unable to answer questions. Repeatedly saying, "I want out of bed." I will call the pts son.
--- NOTE | 2021-10-29 08:45 | NUR ---
PATIENT UP TO CHAIR WITH CEILING LIFT AND GREEN LIFT SLING. X3 PERSON ASSIST. PT HAD A SMALL FORMED BM. EDEMA OVERALL IS IMPROVED. PT MORE VERBAL TODAY. PT STATES SHE WANTS TO GO HOME AND STILL MOANING OUT IN PAIN. PRN PAIN MEDICATION GIVEN. PT ASKING FOR WATER AND ABLE TO DRINK SAFELY. NEW IV STARTED IN RIGHT WRIST. OLD IV IN RIGHT FOREARM D/C. IV FLAGYL STARTED. TPN CONTINUES AT 84 ML/HR.
--- NOTE | 2021-10-29 10:40 | NUR ---
Called and spoke with pts son, German. Discussed with son I attempted to speak with pt earlier and she was unable to answer appropriately. Discussed option for SNF placement, followed by assisted living. Discussed need to contact [facility] and check if pt would qualify for half-way medicaid for placement to a SNF or an INTERMEDIATE/RC. I believe she would be over amount of care an INTERMEDIATE or [facility] could provide. Gave him the number for [facility] to call Nadia Richard to begin the financial eval and she will assign the case for a physical eval. I spoke with Nadia and gave her an update. This pt has been evaluated in the past by aging a disability, she qualified, but then decided she did not need assist.
--- NOTE | 2021-10-29 11:09 | NUR ---
3PA WITH SUDHAKAR TO [facility] FOR BM. PATIENT NOW BACK TO RECLINER, LEGS ELEVATED. CALL LIGHT IN EASY REACH
--- NOTE | 2021-10-29 12:10 | NUR ---
PATIENT REMAINS UP IN CHAIR. PT UP TO [facility] A WHILE AGO AND ABLE TO HAVE A LARGE FORMED BM, USING CEILING LIFT ONTO COMMODE AND BACK FROM COMMODE. PT NOW RESTING IN CHAIR. MOVING RIGHT ARM AROUND QUITE A BIT, TOUCHING HER OWN LEGS AND HEAD. P[T ALSO MOVES RIGHT LEG AROUND. IV MAG STARTED PER ORDER. TPN CONTINUES AT 84 ML/HR. PT WILL HAVE LIPIDS TODAY WELL WITH NEW TPN. PT'S VISITOR (SIGNIFICANT OTHER TRAY) HAS COME AND LEFT. CBG DUE AT 1400. CONTINUE TO MONITOR.
--- NOTE | 2021-10-29 13:26 | NUR ---
Contacted [facility] in [place], no beds; [facility] with [facility], [facility] have beds. Will send chart. [facility] may have a bed, will send chart.
--- NOTE | 2021-10-29 14:26 | NUR ---
FAXED CHART NOTES TO [facility] AND [facility]. CONFIRMATIONS ALL RECEIVED.
--- NOTE | 2021-10-29 15:20 | NUR ---
assisting in CCU, primary RN in another room. Pt yelling, crying out in pain, agitated and yelling "ow" and yelling about TV show. Primary RN, Reta, requested patient be given prn Ativan and Dilaudid oral doses. See emar for medical technologist chemistry. Pt fidgeting in chair, able to drink water with pills, current vital signs: BP 130/82, HR 84, SpO2 96% on room air, resp rate 18 and even.Patient skin is pink and warm to the touch, chair alarm in place after patient boosted up in chair by this RN and READING TUTOR. Patient remains on electronic device monitor and is in view of nurses station.
--- NOTE | 2021-10-29 15:25 | NUR ---
PATIENT UP IN RECLINER, YELLING OUT. PATIENT C/O PAIN AND CONTINUES TO TRY AND GET OUT OF CHAIR. CHAIR ALARM NOW UNDER PATIENT AND PATIENT REPOSITIONED IN RECLINER. PATIENT UNHAPPY WITH ANY POSITION STAFF MOVES HER TO. JUICE AND ENSURE PROVIDED. RN DIPESH IN ROOM WITH PATIENT AT THIS TIME. ALARM ON FOR SAFETY
--- NOTE | 2021-10-29 18:41 | NUR ---
PATIENT REMAINS UP IN CHAIR AT THIS TIME. PT IS SLEEPING AND APPERAS COMFORTABLE. DILAUDID X2 TIMES TODAY FOR PAIN/DISCOMFORT. PINEDA CONTINUES TO DRAIN CONCENTRATED URINE. TPN INFUSING, WELL LIPIDS.
--- NOTE | 2021-10-29 20:28 | NUR ---
PT RESTING IN RECLINING CHAIR AT BEDSIDE AND APPEARS COMFORTABLE W/O NOTED DISTRESS. VSS. RESPIRATIONS EVEN AND UNLABORED. CALL LIGHT AT HAND. EDWIN PATENT. TOLERATING TPN AND LIPIDS. WILL CONTINUE TO MONITOR.
--- NOTE | 2021-10-29 21:58 | NUR ---
PT RESTING W/ EYES CLOSED AND APPEARS COMFORTABLE. TOLERATING TPN AND LIPIDS ORDERED. VSS. CALL LIGHT AT HAND. WILL CONT TO MONITOR.
--- NOTE | 2021-10-29 23:30 | NUR ---
PT ASSISTED BACK TO BED FROM RECLINER VIA CEILING LIFT. PRN PAIN MEDICATION ADMINISTERED- SEE EMAR FOR ADDITIONAL INFO. COMPLIANT WITH HYGEINE CARES. EDWIN PATENT. TOLERATING TPN AND LIPIDS ORDERED. CALL LIGHT WITHIN REACH. WILL CONTINUE TO MONITOR.
--- NOTE | 2021-10-30 04:24 | NUR ---
REPOSITIONED IN BED W/ MAX ASSIST. PINEDA PATENT. TOLERATING TPN. PRN PAIN MEDICATION ADMINISTERED AND HELPFUL. VSS. RESPIRATIONS EVEN AND UNLABORED. NO DISTRESS NOTED. CALL LIGHT WITHIN REACH. WILL CONTINUE TO MONITOR.
--- NOTE | 2021-10-30 07:10 | NUR ---
Spoke with German. Pt is not verbalizing this am. Discussed with German chart was sent to [facility], [facility], [facility]. Son in agreement pt will need placement on discharge. He states he is feeling better as he feels like there is a plan in place. He was able to discuss this with pts boyfriend.
--- NOTE | 2021-10-30 08:12 | NUR ---
Received a text from Arleth at [facility]. They will review this chart in their AM meeting and will let me know if they can accept. They have concerns she was + for meth.
--- NOTE | 2021-10-30 09:00 | NUR ---
PATIENT RESTING IN BED, SLEEPING AT THIS TIME. PT'S SON FÁTIMA HAD BEEN IN PREVIOUSLY AND GIVEN AN UPDATE ON HOW HIS MOM HAS DONE OVER THE LAST COUPLE OF DAYS. HR IN THE 80s, SINUS. SP02 IS 95%. RASH CONTINUES TO SHOW SIGNS OF IMPROVEMENT WITH BEING LESS RED. PT'S LEFT ARM REMAINS EDEMATOUS, AND WILL BE PLACED ON PILLOWS TO BE ELEVATED, WELL A SHAYNE HOSE PLACED ON ARM TO HELP WITH LYMPH EDEMA. NEW FENTANYL PATCH ON LEFT SHOULDER, OLD REMOVED FROM RIGHT SHOULDER. PT/OT ORDERED. DR. JETER IN TO SEE PATIENT EARLIER THIS AM, WELL CASE MANAGEMENT. IV MAG HANGING, WELL TPN CONTINUES AT 84 ML/HR.
--- NOTE | 2021-10-30 10:00 | NUR ---
Notified by [facility] they are declining this pt.
--- NOTE | 2021-10-30 11:15 | NUR ---
PATIENT UP TO CHAIR WITH SLING AND 2 PERSON ASSIST. OT HAD BEEN IN ROOM AND WORKED WITH PATIENT. MEDIUM SIZE SHAYNE HOSE PLACED ON LEFT ARM AND PT TOLERATED THIS WELL EARLIER. ONCE UP IN SLING, PT MUCH MORE AWAKE AND CONVERSIVE. PT YELLING AT STAFF AND SAYING, "WHY AM I HERE? WHAT IS GOING ON? WHY ARE YOU GUYS TOUCHING ME? I DO NOT GIVE YOU CONSENT TO TOUCH ME! I WANT TO GO HOME. WHERE IS TRAY?" WHILE GETTING HER POSITIONED INTO CHAIR, PT'S ANNIKA FELIZ DOES CALL AND CALL TRANSFERRED INTO PATIENT. TRAY THEN STATES HE IS GOING TO COME VISIT.
--- NOTE | 2021-10-30 11:50 | NUR ---
CHAIR ALARM SOUNDING, THIS UPSETTER HELPER IN ROOM TO FIND S/O STANDING IN FRONT FOR PATIENT AND HOLDING HER HANDS WHILE ATTEMPTING TO STAND HER UP. S/O STATES "SAJI JUST WANTS TO GET UP" PATIENT AND S/O EDUACTED ON IMPORTANCE OF HAVING STAFF WITH HER BEFORE STANDING UP ESPECIALLY SINCE SHE HAS ONLY TRANSFERRED BY SUDHAKAR THUS FAR IN HER STAY. PATIENT CONTINUES TO QUESTION WHY SHE IS HERE AND ALSO STATES SHE WANTS HER PINEDA OUT. CALL LIGHT IN EASY REACH, CHAIR ALARM ON FOR SAFETY. VITALS CHARTED AND PINEDA EMPTIED.
--- NOTE | 2021-10-30 12:33 | NUR ---
PATIENT REMAINS UP IN CHAIR AND DOES NOT WANT NURSING STAFF HELPING HER. SHE SPECIFICALLY ASKED FOR US TO LEAVE HER ALONE SO SHE CAN TALK WITH HER FIANCE. PATIENT'S TPN REMAINS INFUSING AT 84 ML/HR. PT REQUESTING PINEDA CATH TO BE D/C.
--- NOTE | 2021-10-30 12:49 | NUR ---
DR. JETER INTO ROOM TO SEE PATIENT AGAIN SHE IS THE MOST AWAKE WE HAVE SEEN HER. PATIENT NOT A LITTLE MORE SLEEPY AND NOT TALKING CLEAR SHE WAS 15 MINUTES AGO. PATIENT ASKING FOR HER TRAY, WHO REMAINS IN ROOM. PLAN OF CARE DISCUSSED. WILL CONTINUE TO MONITOR.
--- NOTE | 2021-10-30 14:05 | NUR ---
PATIENT UP IN CHAIR, PATIENT REQUESTS SHOULDER/NECK TO BE MASSAGED, WARM PACK APPLIED TO NECK. PATIENT VERY PAINFUL THIS AFTERNOON AND SEEMS TO BE MORE CONTRACTED AND STIFF THAN WHEN SHE FIRST WAS HOYERED TO THE CHAIR. THIS PRODUCTION PAINTER ACCIDENTLY BUMPED INTO PATIENTS RIGHT LEG WHILE PERFORMING AFTERNOON CARES, THIS WAS VERY PAINFUL FOR PATIENT. P/T IN WITH PATIENT AT THIS TIME, PATIENT CONTINUES TO YELL FOR HER S/O TRAY. CALL LIGHT IN EASY REACH.
--- NOTE | 2021-10-30 15:31 | NUR ---
DRESSING CHANGED ON PORT. PT HELPED BACK TO BED X2 PERSON ASSIST. PT TOLERATED FAIR. PT WAS ABLE TO STAND WITH THIS ASSISTANCE. PT ASKING FOR PAIN PILL. PO DILAUDID HAS BEEN D/C PER MD. PT GIVEN PO ATIVAN 0.5 MG FOR ANXIETY. FENTANYL PATCH ON LEFT SHOULDER. PT ATE ALMOST ALL OF HER ICE CREAM THAT SHE REQUESTED. NEW BAG OF TPN TO BE STARTED AT 1600. PT'S SIGNIFICANT OTHER TRAY AT BEDSIDE FOR A FEW MINUTES BUT THEN LEAVES AGAIN. PATIENT STATES TO HIM, "DID YOU BRING MY PAIN MEDS." S/O LEAVES FOR A WHILE AND UNSURE IF HE IS TO RETURN THIS EVENING OR NOT. PT TALKED TO HER SON FÁTIMA ON THE PHONE EARLIER.
--- NOTE | 2021-10-30 15:33 | NUR ---
ICE CREAM PROVIDED FOR PATIENT, PATIENT ABLE TO HOLD CUP IN LEFT HAND AND TAKE A BITE, NEEDED ASSSITANCE FOR REST OF CUP. PATIENT NOW BACK TO BED WITH 2 PERSON HEAVY ASSIST. PATIENT VERY PAINFUL IN NECK/SHOULDERS, CRYING OUT IN PAIN. WARM PACK PLACED UNDER HER NECK. RN AT BEDSIDE AT THIS TIME. BED ALARM ON FOR SAFETY
--- NOTE | 2021-10-30 16:07 | NUR ---
PATIENT REMAINS EXTREMELY UNCOMFORTABLE, SCREAMING THAT HER NECK HURTS, ASKING FOR MORE PAIN PILLS, AND JUST OVERALL MISERABLE. RUBBED PATIENT'S NECK FOR HER. ICE PACK ATTEMPTED BUT PATIENT DID NOT TOLERATE THIS. PT THEN ASKING FOR HER HANDS TO BE RUBBED. THIS RN SAT AT BEDSIDE WITH HER ANDRUBBED BOTH HER HANDS UNTIL PATIENT FELL ASLEEP. PT NOW RESTING. WARM BLANKET PROVIDED. PILLOWS PLACED UNDER HER LEFT ARM, UNDER HER KNEES FOR COMFORT. PT'S EDEMA IN LEGS IS MUCH BETTER AFTER HER BEING UP AND MOVING AROUND, MOBILIZING LEGS ON HER OWN WILL.NEW BAG OF TPN HUNG - LINE FLUSHED VIGOROUSLY BEFORE STARTING NEW BAG AND CLAVE CHANGED. CONTINUE TO MONITOR CLOSELY.
--- NOTE | 2021-10-30 17:09 | NUR ---
TALKED TO DR. JETER AND EXPRESSED CONCERNS REGARDING PATIENT'S PAIN AND PAIN MANAGEMENT. PO DILAUDID HAS BEEN D/C, BUT PATIENT IS ASKING OVER AND OVER FOR MORE PAIN MEDICATION FOR HER NECK. NONPHARMACOLOGICAL ATTEMPTS WERE MADE TO HELP WITH PAIN SUCH RUBBING HER NECK, ICE PACK, WARM PACK, AND REPOSITIONING. 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 PT WAS JUST RESTARTED ON HER HOME DOSE OF BACLOFEN TODAY AND FIRST DOSE HAS BEEN GIVEN. ORDER REC'D TO GIVE PO MORPHINE FOR PAIN, AND THIS WAS GIVEN TO PATIENT. PT'S S/O TRAY ARRIVES BACK AROUND 1645 AND NOW IN ROOM WITH PATIENT. ALSO DISCUSSED WITH DR. JETER THE POSSIBILITY OF A MUSCLE RELAXER. DR. JETER STATES SHE WOULD LIKE TO TRY TO THE PO MORPHINE FIRST BUT IT COULD BE AN OPTION POTENTIALLY. WILL CONTINUE TO MONITOR.
--- NOTE | 2021-10-30 18:35 | NUR ---
PATIENT WILL TRANSFER TO MED/SURG ROOM 111 W/O TELEMETRY. PT'S SON FÁTIMA [phone] WAS CALLED TO UPDATE ON THIS. PT ASLEEP IN ROOM AND SO IS SIGN. OTHER TRAY ON COUCH. DR. JETER ALSO ORDERS FOR PATIENT'S PINEDA TO BE D/C.
--- NOTE | 2021-10-30 19:00 | NUR ---
report from Reta rn, pt somulent, s/o in room, pt call light in reach - r dina cath accessed with tpn fusing. elvated legs to pillow, dugan draining, left lower leg with healing wound noted on arrival to room 111 m/s.
--- NOTE | 2021-10-30 20:33 | NUR ---
PT REPOSITIONED TO LEFT SIDE WITH FULL TURN TO SIDE, LEFT LOWER LEG WOUND SHOWN TO DANDRE PUGH RN, COVERED WITH ALEVEN AND DATED. PT AWAKENS WITH REPOSITIONING AND ABLE TO TAKE PO BACLOFEN WITH WATER. BED ALARM ON, CALL LIGHT IN REACH PT CONFUSED.
--- NOTE | 2021-10-30 20:36 | NUR ---
PT. BS CHECKED, DOCUMENTED, NURSE NOTIFIED OF RESULT. PT. VITALS AND I/OS CHARTED. PT. REPOSITIONED. FRESH ICE WATER PROVIDED. BED ALARM SET, CALL LIGHT LEFT WITHIN REACH. NO OTHER IMMEDIATE NEEDS AT THIS TIME.
--- NOTE | 2021-10-30 21:19 | NUR ---
RN IN TO HANG IV, PT MUMBLES IN SLEEP, CALL LIGHT IN REACH - BED ALARM ON.
--- NOTE | 2021-10-30 22:29 | NUR ---
ROOM CHECK - PT UNCHANGED, REPOSITIONED TO BACK.
--- NOTE | 2021-10-31 01:42 | NUR ---
PT DOES NOT AWAKEN FOR VITALS AND ASSESSMENT, REPOSITIONED TO R SIDE. CALL LIGHT IN REACH
--- NOTE | 2021-10-31 02:01 | NUR ---
PT WOKE UP SHORTLY AFTER REPOSITIONING C/O NECK PAIN - PO MS GIVEN.
--- NOTE | 2021-10-31 02:32 | NUR ---
PT RESTLESS - WANTS TO GO TO [facility] AND SEE THE [facility] REPOSITIONED AGAIN FOR COMFORT - ATIVAN PO GIVEN.
--- NOTE | 2021-10-31 04:58 | NUR ---
pt eyes closed, resp even, quietly resting with call light in reach.
--- NOTE | 2021-10-31 05:54 | NUR ---
EDWIN MCKEON INTACT - CASE AREA CLEANED - PUREWICK PLACED - TURNED TO R SIDE - PT DOES NOT TOLLERATE POSITION CHANGES WELL, NECK AND ARMS PAINFUL. EXP WHEEZE NOTED,
--- NOTE | 2021-10-31 06:09 | NUR ---
WARM PACK TO NECK AND PO MS GIVEN FOR PAIN- PT UNCOMFORTABLE WITH MOVEMENT.
--- NOTE | 2021-10-31 06:16 | NUR ---
PT CONTINUES TO CRY OUT WITH NECK AND BACK PAIN, REPOSITIONED AND PO ATIVAN GIVEN - PT THANKFUL THROUGH JOSE - WARM PACK REPOSITIONED.
--- NOTE | 2021-10-31 06:31 | NUR ---
pt asked this rn to call and update her son levi - I called let him know that dugan was out, and pain was either one extreme to the other - either somulent or crying with any activity of daily living. not able to eat and drink well - rn assist to drink with pills, and reposition with great distress. currently quietly resting. pt will be off work in a few hours and hopes to connect with [facility] rn case managment.
--- NOTE | 2021-10-31 06:48 | NUR ---
dr bustillos updated of pt pain with movement and somulence at rest - notified that I updated son. help desk intern aware of update and pt discomfort after ms and ativan
--- NOTE | 2021-10-31 06:56 | NUR ---
PT MOANING THAT SHE IS SO AFRAID - PAINFUL - PO TYLENOL GIVEN WITH PUDDING - CRUSHED. PT ASKED "IF i SCREAM CAN [facility] HEAR ME?" iM AFRAID AND HURT - RE ASSURED PT.
--- NOTE | 2021-10-31 07:45 | NUR ---
Spoke with pt's son German, he is aware of eval from [facility] today. He worked last night, but states he will stay up for the call. Denies other needs. I called and spoke with Nadia Richard at [facility], eval will be at 10:00 am this morning.
--- NOTE | 2021-10-31 08:00 | NUR ---
REPORT RECEIVED FROM NIGHT RN AND PT. CARE RESUMED. PT. IS ALERT AND ORIENTED TO SELF. SHE IS MOANING AND INCONSOLABLE. SHE STATES SHE NEEDS TO SIT UP. ASSISTED WITH REPOSITIONING. RECENTLY GIVEN PAIN MEDS. PUREWICK IN PLACE AND PATENT. LEGS ELEVATED ON PILLOWS. ALLEVYNS ON LLE INTACT. ASSESSMENT COMPLETED. TPN INFUSING. PT. LEFT RESTING WITH CALL LIGHT IN REACH AND BED ALARM ON.
--- NOTE | 2021-10-31 09:00 | NUR ---
PT. UNABLE TO TAKE MEDS AT THIS TIME. SHE IS OBTUNDED AND UNABLE TO KEEP HER EYES OPEN. RR IS 13. O2 SAT. IS 95%. SHE IS ABLE TO OPEN HER EYES FOR BRIEF MOMENTS AND STATE HER NAME. THIS NURSE SPOKE WITH CHARGE WHO STATES THIS HAS BEEN TYPICAL FOR THIS PATIENT. WILL CONTINUE TO MONITOR.
--- NOTE | 2021-10-31 09:23 | NUR ---
THIS SERVICE AGENT ASSISTED PT IN GETTING PATIENT TO CHAIR FROM BED, 2PA FWW AND GAITBELT USED TO STAND PIVOT TRANSFER. PATIENT POSITIONED WITH PILLOWS UNDER BOTH ARMS AND LEGS AND LOOKS COMFORTABLE. CHAIR ALARM. PATIENT RESTING NOW RESTING IN CHAIR. VITALS AND I&O'S CHARTED. LINENS CHANGED. CALL LIGHT IN REACH. NO FURTHER NEEDS AT THIS TIME.
--- NOTE | 2021-10-31 11:00 | NUR ---
both nares swabbed for covid-19 without complication. sample taken to lab.
--- NOTE | 2021-10-31 13:17 | NUR ---
PT. IS STILL OBTUNDED AND CANNOT KEEP EYES OPEN TO ANSWER QUESTIONS. RESPIRATIONS EVEN AND UNLABORED. PT. REPOSITIONED WITH PILLOW AND A ROLLED TOWEL UNDER LEFT NECK. LEFT RESTING WITH ALARM ON AND CURTAIN OPEN IN VIEW OF NURSES STATION.
--- NOTE | 2021-10-31 13:24 | NUR ---
PT ASLEEP IN CHAIR, DID NOT DISTURB
--- NOTE | 2021-10-31 14:59 | NUR ---
pharmacy called to confirm tpn and lipids are being dc'd
--- NOTE | 2021-10-31 14:59 | NUR ---
PT. BLOOD GLUCOSE 79. THIS NURSE ATTEMPTED TO WAKE PT. TO DRINK FLUIDS. PT. ANSWERS SHORT QUESTIONS BUT DOES NOT OPEN EYES. ASSESSMENT COMPLETED. TPN IS RUNNING AT HALF RATE TO DC THIS AFTER NOON. EDEMA WORSENED IN ARMS. REDNESS ON BLE IMPROVING AND WITHIN OUTLINES. PT. LEFT RESTING WITH CURTAIN OPEN, ALARM ON. WILL CONTINUE TO MONITOR.
--- NOTE | 2021-10-31 15:07 | NUR ---
UPDATED ON PT. BLOOD GLUCOSE AND PLAN FOR TPN TO BE DC'D.
--- NOTE | 2021-10-31 15:34 | NUR ---
Spoke with both [facility] and [facility]. They are reviewing charts.
--- NOTE | 2021-10-31 16:20 | NUR ---
PT HOYERED BY TWO STAFF TO BED. PUREWICK CHANGED. BARRIER CREAM APPLIED. EDEMA PRESENT AT LABIA. PT. IS MORE AWAKE AND ORIENTED TO SELF AND YEAR. ADMIN BACLOFEN. SHE DRANK 300ML APPLE JUICE AND A PUDDING. ORAL CARE COMPLETED WITH ASSISTANCE. LEFT RESTING WITH DOOR OPEN AND ALARM ON.
--- NOTE | 2021-10-31 19:05 | NUR ---
bedside report from Daysi RN, pt crying out in pain and confusion - keeps moaning, with no clear needs - easily re directed when rn asks her what she needs and stops to re start on leaving the room. purewick in place to suction, iv fluids fusing, pt has bed alarm and call light in place.
--- NOTE | 2021-10-31 19:30 | NUR ---
dr barfield confirmed dc lipids, tpn and ok for bs as, hs and prn. orders entered.
--- NOTE | 2021-10-31 21:00 | NUR ---
IN TO PROVIDE PT A SNACK, PT UPSET AND ASKING FOR HER S/O, PT INFORMED HE IS ON THE WAY TO HER RM, VITALS AND ACCU CHECK DONE, PT REMAINS IN THE CHAIR AND IN VEIW OF THE RN STATION
--- NOTE | 2021-10-31 21:12 | NUR ---
PT IN EATING GRANOLA BAR WITH ASPIRATION PRECAUTIONS AND RN, BS CHECK 111, IV ABX HUNG - PT TALKATIVE AND ANXIOUS - S/O TRAY CAME IN.
--- NOTE | 2021-10-31 22:18 | NUR ---
IN TO PT ROOM FOR IV ABX, PT EVEN RESP, EYES CLOSED ASLEEP IN , S/O SONJA IN ROOM ASLEEP AND SNORING ON COUCH.
--- NOTE | 2021-11-01 00:05 | NUR ---
pt unchanged, resp even, eyes closed, reclined in ch, call light in reach - purewick to suction wnl.
--- NOTE | 2021-11-01 01:08 | NUR ---
rn attempted to change pt purwick and attends, pt asked RN to wait - she and Edward are having a serious disscussion- he walked out then returned. Pt upset and says she wants to talk to him, repositioned in chair and RN ready when pt lets us know - call light in reach. pt talking with Neha about dc plans/care.
--- NOTE | 2021-11-01 01:35 | NUR ---
pt 2 person pivot transfer from to bed, attends changed, eusebia area cleaned - new purewick placed. pt confused, not orineted to this nurse. max assist to reposition in bed, call light in place - pt talkative - call light in place - fresh water to pt, blood sugar checked 111 after snack of pudding. pt agreeable to trying to sleep - rn can view her from the nurses station.
--- NOTE | 2021-11-01 03:33 | NUR ---
pt resp even, eyes closed - in bed with s/o sleeping on couch. call light in reach - iv fusing wnl - dina cath.
--- NOTE | 2021-11-01 06:13 | NUR ---
pt alert and not oriented to place but knows town. eating a muffin from home - larissa is here her s/o. po pain meds given while eating. pt talkative and looking through papers. vitals and i/o wnl. rash is improved on legs and chest where outline is - improved. iv abx fusing well in arm.
--- NOTE | 2021-11-01 06:51 | NUR ---
pt lab glucose 79 - pt is now eating 1/2 muffin and a package of sweet tart candy. Pt very alert and talkative this am.
--- NOTE | 2021-11-01 08:00 | NUR ---
REPORT RECEIVED FROM NIGHT RN AND PT. CARE RESUMED. PT. IS MORE ALERT AND ORIENTED TO ALL BUT DATE. 2PA TO THE CHAIR WITH FWW AND DID WELL. BED AND GOWN SATURATED IN URINE. NEW SKIN BREAKDOWN COMPARED TO YESTERDAY AND MASCERATION DUE TO URINE ON INNER THIGHS. CLEANED AND BARRIER CREAM APPLIED. PORT RETURNS BLOOD AND FLUSHES WELL. IVF INFUSING. ASSESSMENT COMPLETED. LEGS ELVATED AND PT. ASSISTED WITH SETTING UP FOR BREAKFAST. NEW GOWN ON. LEFT RESTING WITH CURTAIN OPEN AND CALL LIGHT IN REACH.
--- NOTE | 2021-11-01 09:30 | NUR ---
PT ASSISTED BY PT AND THIS NURSE WITH SITTING AND STANDING. TOLERATING WELL.
--- NOTE | 2021-11-01 10:00 | NUR ---
Notified by staff, pt stated boyfriend was trying to get her to sign legal papers. They are unsure if pt signed papers.
--- NOTE | 2021-11-01 11:24 | NUR ---
TPN HAS BEEN D/C'D. PATIENT MORE ALERT AND EATING THIS MORNING. REGULAR DIET IN PLACE WITH SUPPLEMENTS WITH MEALS AND SNACKS AT 10 AM AND 3 PM. PATIENT STILL SOMEWHAT CONFUSED. THE GOAL IS FOR THE PATIENT TO CONTINUE TO REMAIN ALERT ENOUGH TO EAT. NO FURTHER NUTRITION INTERVENTION AT THIS TIME. WILL CONTINUE TO MONITOR.
--- NOTE | 2021-11-01 11:45 | NUR ---
In and spoke with Nancy. She is able to hold a conversation, but it is very scattered and she jumps to different topics and does not finish thoughts. She states Edward was here and wanted her to co-sign papers to buy land to build a home. Discussed with pt I don't think she is in any shape to sign any legal papers. She states she didn't sign and isn't going to. I attempted to discuss what pt would like to do when she leaves here. This was a very lengthy discussion as pt was unable to stay with one thought and discussed her past, her medical illness, and her childhood. She did state her son is her POA and she agreed to this as he needs to know her medical info. Pt wants to go home on dc, but I discussed with her she is unable to care for herself and really can't walk alone. Staff are assisting her. She denies her boyfriend lives with her and states he cannot be counted on to be there. She could never tell me a plan for discharge. We discussed she will more than likely need therapy before being able to move home. Pt states she has had therapy in the past.
--- NOTE | 2021-11-01 13:14 | NUR ---
ROUNDING ON PT. POOR APPETITE. PT. STATES SHE HAS TO VOID. ATTEMPTED TO GET PT. UP TO COMMODE BUT VOIDED ON FLOOR. CLEANED AND PUREWICKORALIA IN PLACE. AMBULATED WITH 1PA TO THE BED WITH FWW. PT. HAVING VISUAL HALLUCINATIONS, SEEING BUGS AND PILLS ON THE TABLE. REORIENTED. ALARM ON AND CURTAIN OPEN.
--- NOTE | 2021-11-01 16:25 | NUR ---
PT. CONFUSED AT TIMES AND STILL HAVING VISUAL HALLUCINATIONS. ASSISTED WITH REPOSITIONING PUREWICK PATENT AND DRAINING WELL. LEFT RESTING WITH BED ALARM ON AND CALL LIGHT IN REACH.
--- NOTE | 2021-11-01 19:00 | NUR ---
bedside report from Daysi RN - pt is awake and resting, call light in reach - reports better day, denies needs. purewick in place, encourage po food/drink.
--- NOTE | 2021-11-01 22:10 | NUR ---
IN TO CLEEAN UP PT, HEAVY INCONT, NEW PUREWICK IN PLACE, ACCU CHECK AND VITALS DONE, PT WANTED PAPER AND PEN, PROVIDED, PT "WANTS TO CONFIDE" IN THIS SEAT JOINER CHAINSTITCH ABOUT "CREATURES CRAWING INTO HER ROOM AND UNDER THE BED" WILL MONITOR PT, WILL INFORM THE RN, NO FURTHER NEEDS AT THIS TIME
--- NOTE | 2021-11-01 22:45 | NUR ---
IN TO RECHECK GLUCOSE @15mins, REPORTED TO NURSE
--- NOTE | 2021-11-01 23:32 | NUR ---
PT HAD SONJA VISIT IN ROOM AND SAJI NOTIFIED Sara LOZADA THAT SHE DID NOT WANT SONJA HERE... SARA HAD THIS RN COME IN WITH PT - THIS RN, ENTERED ROOM AND PT LOOKED SCARED AND GAVE RN THE EYE AND FACIAL EXPRESSIONS - LOOKING OVER AT SONJA AND MOUTHED HE NEEDS TO GO...!! RN ASKED PT AND SONJA WHAT THE PLAN WAS FOR VISITNG TONIGHT AND SONJA WAS ON PHONE - TEXTING. PT REMINDED SONJA THAT SHE WAS NOT SIGNING ANY PAPERS WHILE SICK AND IN THE HOSPITAL - SONJA GOT UPSET AND SAID THE PAPERS WERE NONE OF THE HOSPITALS BUSINESS - RN REMINDED SONJA THAT PT COULD NOT SIGN ANYTHING AT THIS TIME WITHOUT HER POWER OF ATTOURNEY - HER SON FÁTIMA FELIZ WAS UPSET. HE COLLECTED THE PAPERS AND LEFT - PT WAS RELIVED - AND STATED THAT SHE LIVES IN HER OWN APT AND HE SOMETIMES STAYS WITH HER - THE PAPERS ARE FOR A NEW HOUSE AND SHE IS NOT READY TO DISCUSS THIS WITH HER CURRENT ILLNESS AND UNKNOW DISCHARGE STATE. PT SAD THAT SHE IS UPSETING SONJA AND HIS MOM INGA AGEE - AND DOESN'T WANT THEM TO BE MAD - BUT SHE DOESN'T WANT TO BE TAKEN ADVANTANGE OF WITH HER HOUSE/APT.
--- NOTE | 2021-11-02 00:04 | NUR ---
DR JETER AT RN STATION AND MADE AWARE OF TRENDING BLOOD SUGARS SINCE APPROX 2200- INITIALLY 67, THEN 99 AFTER PO SNACK AND LAST CHECK 107. NO NEW ORDERS RECEIVED AT THIS TIME.
--- NOTE | 2021-11-02 02:15 | NUR ---
IN TO CHECK ON PT, PT HAD PUREWICK OUT OF PLACE, ASSISTED PT TO PUT DEVICE BACK IN PLACE, REPLACED SUCTION CANISTER, NO FURTHER NEEDS AT THIS THIS TIME
--- NOTE | 2021-11-02 02:16 | NUR ---
PT AWAKE, IV FUSING - VOIDING QUATATY SUFFICIANT - PURE WICK WORKING.
--- NOTE | 2021-11-02 03:09 | NUR ---
no changes, pt eyes closed. resp even - call light in reach.
--- NOTE | 2021-11-02 05:06 | NUR ---
pt awake and alert, asks appropriatly for warm blanket using the call light, vitals taken, i/o complete and wnl - lab in for draw. pt denies other needs, call light in reach
--- NOTE | 2021-11-02 06:30 | NUR ---
MAO AND ATTENDS REPLACED AT THIS TIME
--- NOTE | 2021-11-02 08:00 | NUR ---
REPORT RECEIVED FROM NIGHT RN AND PT CARE RESUMED. PT. IS ALERT AND ORIENTED TO SELF AND EMOTIONALLY LABILE. 1PA WITH FWW TO THE COMMODE AND THEN CHAIR. ABLE TO VOID IN THE COMMODE. +1 EDEMA BLE. ALLEVYN INTACT ON RLE WOUND. ASSESSMENT COMPLETED. PORT DRESSING C.D.I. PT. ASSISTED WITH BREAKFAST SET UP. SHE STATES SHE DOES NOT WANT SON TO RECEIVE UPDATES BECAUSE HE IS "TOO CONTROLLING OF HER MEDICATIONS". PT STATES SHE DOES NOT WANT ANNIKA FELIZ TO VISIT TODAY BECAUSE HE WILL FORCE HER TO SIGN PAPERS FOR HER HOUSE. BUSINESS CONTINUITY COORDINATOR NOTIFIED. PT. LEFT RESTING WITH CHAIR ALARM ON AND CALL LIGHT IN REACH.
--- NOTE | 2021-11-02 16:04 | NUR ---
CHANGED PUREWICK AT 1600PM.
--- NOTE | 2021-11-02 19:03 | NUR ---
PT IN BED TALKING TO FAMILY ON PHONE. VITALS AND I/O'S COMPLETED, NO OTHER NEEDS AT THIS TIME. CALL LIGHT IN REACH.
--- NOTE | 2021-11-02 20:45 | NUR ---
IN TO CHECK ON PT, PT USING CALL LIGHT, PT REDIRECTABLE, VS DONE, MAO HAJI
--- NOTE | 2021-11-02 21:45 | NUR ---
IN TO HELP RN GET PT CLEANED UP, NEW LINENS, ATTENDS, PUREWICK IN PLACE, BED ALARM IN PLACE
--- NOTE | 2021-11-02 22:30 | NUR ---
PT CALLED HEAD IRRIGATOR INTO ROOM, NEEDS HELP WITH TV/REMOTE, CHATTY, THEN HUNGRY, VINICIO PROVIDED, PT TRYING TO KEEP THIS HEAD IRRIGATOR IN ROOM TO CHAT, BROKEAWAY FROM CONVO AND NO FURTHER NEEDS
--- NOTE | 2021-11-03 00:26 | NUR ---
ON ROOM AIR, EYES CLOSED, NO DISTRESS, LAYING ON HER LEFT SIDE, CALM, QUIET. IVF INFUSING , PUREWICK IN PLACE
--- NOTE | 2021-11-03 02:45 | NUR ---
IN TO EMPTY AND REPLACE PUREWICK CANSISTER, NO FURTHER NEEDS
--- NOTE | 2021-11-03 03:42 | NUR ---
PT ON ROOM AIR, RESTING, EYES CLOSED, NO DISTRESS, IVF INFUSING W/O PROBLEMS, PUREWICK IN PLACE. LAYING ON LEFT SIDE. CALL LIGHT AND FLUIDSA T HANDS REACH, BED ALARM ON
--- NOTE | 2021-11-03 05:06 | NUR ---
PT ON ROOM AIR, HAS SLEPT OFF AND ON. IS FORGETFUL, COOP, VISUAL AND AUDITORY HALLUCINATION PRESENT OFF AND ON, REDIRECTABLE. R PORTACATH PATENT. IVF INFUSING W/O PROBLEMS. NO C/O ADVERSE REACTION TO ABX. RFA SL PATENT. WAS INCONTINENT OF URINE, ASKED FOR AND USED BEDPAN, PUREWICK IN PLACE. RED PERIAREA, SKIN BETWEEN THIGHS PEELING, BARRIER CREAM APPLIED, SCABBED OVER AND WEEPING AREAS OVER BODY HEALING, RED CASE AREA. TOLERATED LIQUIDS WELL. COMPLETE BED AND GOWN CHANGE DONE AFTER BEING INCONTINENT IN BED. COOPERATIVE. CONTRACTURE OF L NECK PRESENT. LYMPHEDEMA TO L ARM PRESENT, COMPRESSION STOCKING PRESENT. EDEMA TO HANDS AND ANKLES PRESENT. BED ALARM ON, TOLERATING LIQUIDS WELL.
--- NOTE | 2021-11-03 05:38 | NUR ---
awake, coop with blood draw, vitals and assessment.
--- NOTE | 2021-11-03 07:15 | NUR ---
REPORT RECIEVED FROM NIGHT RN - PT RESTING IN BED ASLEEP, CALL LIGHT IN REACH.
--- NOTE | 2021-11-03 07:25 | NUR ---
dr bustillos gave order for mag, phosphorous and bmp
--- NOTE | 2021-11-03 09:15 | NUR ---
RN IN ROOM TO ASSESS PT AND ADMINISTER SCHEDULED MEDS. PT RESTING AWAKE IN BED UPON ENTRY. PT PLESANT AND ORIENTED THIS AM; NO HALLUCINATIONS OR AGGITATION. PT SHOULDER AND NECK PAINFUL WITH ROLLING IN BED BUT DENIES NEED FOR FURTHER PAIN COVERAGE. CLEAN ATTENDS PLACED WITH NEW PURE WIC AND CANISTER. BARRIER CREAM APPLIED TO CASE AREA, EXCORIATIONS IMPROVING. ALLYVNS IN PLACE ON RIGHT LE. PT ENCOURAGED TO DRINK ENSURE WITH BREAKFAST, EDUCATION ON HEALING PROVIDED. ABLE TO SWALLOW MEDS WITHOUT DIFFICULTY. IV SITE FLUSHES WITHOUT DIFFICULTY, PORT TOLERATING IVF WITHOUT DIFFICULTY.
--- NOTE | 2021-11-03 12:26 | NUR ---
RN ROUNDING ON PT - PT REQUESTS PAIN MEDICATION FOR 710 SHOULDER AND FOOT PAIN. WARM PACK AND TYLENOL PROVIDED. PT FIANCE AT BEDSIDE WITH PT PERMISSION. DOOR AND CURTAIN OPEN PER PT REQUEST. CALL LIGHT ON LAP.
--- NOTE | 2021-11-03 15:15 | NUR ---
PHYSICAL THERAPY IN ROOM TO WORK WITH PT - PT TOLERATING WELL.
--- NOTE | 2021-11-03 15:49 | NUR ---
SEBASTIAN CAVANAUGH PUT IN @3:30.
--- NOTE | 2021-11-03 16:56 | NUR ---
RN IN ROOM TO ADMINISTER SCHEDULED MEDS. PT REPOSISTIONED IN BED TO EAT DINNER. DENIES FURTHER NEEDS, HEAT PACK ON NECK. CALL LIGHT IN REACH.
--- NOTE | 2021-11-03 19:32 | NUR ---
more alert and oriented, repositioned in bed, cooperative, on room air. compression sock to L arm. IVF infusing R portacath. purewik appliead at this time
--- NOTE | 2021-11-03 19:53 | NUR ---
ON ROOM AIR, PLEASANT AND COOP, CARRYING A NORMAL CONVERSATION NO HALLUCINATIONS. DOING OWN FACE MAKEUP. HOB ELEVATED TO COMFORT. LUNGS DIM AT BASES, ABD SOFT, NO BM. EXCORIATED AREA BETWEEN THIGHS AND CASE AREA, RED CASE AREA , SWOLLEN VAGINAL LIPS. PURE WIK IN PLACE. AREA CLEANSED. EDEMAT O LE. DECREAED REDNESS AND EDEMA TO MARKED AREAS OVER LOW ABD AND THIGHS. R PORTACATH PATENT AND R FA SL PATENT. BED ALRM AND FLUIDS AT BEDSIDE.
--- NOTE | 2021-11-03 21:05 | NUR ---
IVF infusing, on room air, eyes closed, no distress, L arm elevated in pillows. fluids and call light at hands reach
--- NOTE | 2021-11-03 21:44 | NUR ---
male frined inroom visiting pt. Pt calm quiet, alert and oriented
--- NOTE | 2021-11-03 23:53 | NUR ---
PT RESTING, ON ROOM AIR, NO DISTRESS, L NECK CONTRACTURE, LAYING ONLEFT SIDE. L ARM W PRESSURE STOCKING IN PLACE, ELEVATED IN PILLOW. EDEMATOUS. PUREWICK IN PLACE, DRAINING. CALL LIGHT AND FLUIDS AT BEDSIDE, MALE FRIEND VISITING
--- NOTE | 2021-11-04 01:10 | NUR ---
on room air, resting, eyes closed, no distress, laying on L side. L arm elevated. call light and fluids at hands reach
--- NOTE | 2021-11-04 02:00 | NUR ---
Incontinent of urine, purewik in place. coop wtih changing. skinc are. went back to sleep
--- NOTE | 2021-11-04 03:37 | NUR ---
pt awakes easily, purewik in place, was also incontinent of large amont of urine. repositoned and working. skinc are, clean attend in place. cooperative, repositoned in bed. IVF infusing w/o problems
--- NOTE | 2021-11-04 05:04 | NUR ---
PT ON ROOM AIR, LUNGS CLEAR AT THIS TIME, ALERT AND ORIENTED, NO S/SX VISUAL OR AUDITORY HALLUCINATIONS. CARRIED A GOD CONVERSANTION ABOUT CURRENT US AND WORLD AFFAIRS. CONTINEUES TO HAVE R NECK CONTRACTURES AND LYMPHEDEMA l ARM PRESSURE STOCKING IN PLACE, EDEMA AT [place]ARK[place], ELEVATED WITH PILLOWS, EDEMA TO ANKLES, ELEVATED. INCOANTINENT OF URINE/ATTENDS, EXCORIATED PERIAREA AND BETWEEN THIGHS, BARRIER CREAM, EDEMATOUS VAGINAL LIPS AREA, NO C/O PAIN. PUREWIK IN PLACE PLUS URINARY INCONTINENT. DECREASED ALMOST ALL GONE REDNESS AND EDEMA TO LOW ABD AND THIGH AREA. BLISTER IN LEGS HEALING. REPOSITIONED, HELPED. TOLERATING SMALL SIPS OF FLUIDS, ENCOURAGED TO INCREASE PO FLUIDS. CBG WAS 104. IVF D10% INFUSING W/O PROBLEMS. ALERT NAD ORIENTED. COOPERATIVE,
--- NOTE | 2021-11-04 08:30 | NUR ---
MORNING ASSESSMENT COMPLETE. PT IN BED, DOES NOT WANT TO EAT BREAKFST PROVIDED. PT HAS ORANGES AND ECLAIRS AT BEDSIDE. OUTLINED REDNESS APPEARS GREATLY IMPROVED. PT DENIES FURTHER NEEDS AT THIS TIME. CALL LIGHT IN REACH.
--- NOTE | 2021-11-04 10:54 | NUR ---
CHANGED PT, REPLACED PUREWICK. VACUUM DRIER TENDER ASSISTING WITH TOOTHBRUSHING AND BATHING. PT DENIES FURTHER NEEDS AT THIS TIME. CALL LIGHT IN REACH.
--- NOTE | 2021-11-04 12:31 | NUR ---
PT AWAKE IN BED, EATING LUNCH. DENIES NEEDS AT THIS TIME. CALL LIGHT IN REACH.
--- NOTE | 2021-11-04 15:42 | NUR ---
SOMETIME THIS MORNING I WASHED PATIENT'S FEET AND LEGS GENTLEY. THAN I PUT LOTION ON THE FEET AND GAVE HER FEET A MASSAGE. SHE LOVED IT.
--- NOTE | 2021-11-04 15:45 | NUR ---
AFTER SHE WORKED WITH PYSICAL THERAPY SHE IS SITTING UP IN HER CHAIR.
--- NOTE | 2021-11-04 17:12 | NUR ---
PT SITTING I N CHAIR, STOOD WITH 1 PERSON ASSISTE WITH FWW TO CHANGE LINENS, PT TOLERATED WELL. CASE CARE PROVIDED. PUREWICK REPLACED. PT BACK TO CHAIR FOR DINNER. DENIES FURTHER NEEDS AT THIS TIME. CALL LIGHT IN REACH.
--- NOTE | 2021-11-04 20:08 | NUR ---
ON ROOM AIR, RESPOSITIONED IN BED. NO C/O PAIN. R PORTACATH IN PLACE, IVF INFUSING W/O PROBLEMS. PRESSURE STOCKING L ARM. DECREASED EDEMA NOTES, MOVING ARM VERY WELL TODAY. LE ELEVATED, IMPROVED EDEMA. L LE ALLEVYN IN PLACE, WOUNDS DRY. DECREAED REDNESS CASE AREA AND ABD. PUREWIK IN PLACE. TOLERATING LIQUIDS WELL, CBG 101.
--- NOTE | 2021-11-04 22:37 | NUR ---
PT REPOSITIONED IN BED, AWAKE, WATCHING TV, NO C/O PAIN OR DISCOMOFRT, HOB ELEVATED TO COMOFRT, USING L ARM MORE, COMPRESSION STOCKING IN PLACE, DECREAED EDEMA. LE ELEVATED IN PILLOWS ALLEVYN TO L ANKLE AREA, CRYSTU SCABBED OVER AREA
--- NOTE | 2021-11-05 03:29 | NUR ---
awake, watching tv, no c/o pain or CP. IVF infusing w/o problems, purewik in place, draining large amount of dark yellow urine. call light at hands reach
--- NOTE | 2021-11-05 05:25 | NUR ---
sandy reddy. cooperative. pt voiding large amount of urine. incontinent of urine. attend changed, skinc are and barrier cream applied. cooperative
--- NOTE | 2021-11-05 05:26 | NUR ---
Pt on room air, clear lungs, has been awake most of this shift off and on watching tv. cooperative, no c/o pain. L arm lymphedema greatly improved, no edema at L hand, pressaure stocking in place. mild didcomfort with turning. moves extremities and helps with turning and repositioning. improving redness of low abd and thighs areas. trace edemat o ankles bilat. Allevyn dressing to L ankle area dry scabbed over peeling skin much improved, much improved rash back. no new weping areas noted. Pure wik in place, voiding large amount of medium colored yellow urine. CBG 103, tolerating puding, yellow and fluids well, no emesis. more alert and oriented, follows instructions. uses call light.IVF D10% infusing R portacath, coop with blood draws.
--- NOTE | 2021-11-05 06:29 | NUR ---
CRYING, C/O L ARM, BACK AND NECK PAIN, MEDICATED WITH OXYCODONE 15MG PO, L ARM REPOSITIONED UP IN PILLOWS. REASSURED, TOOK SEVERAL CUES, CALMER NOW
--- NOTE | 2021-11-05 07:33 | NUR ---
PT ALERT AND INTERACTIVE AT SHIFT REPORT. RESTING IN BED WITH A STUFFED MONKEY. DENIES NEEDS OF ANYTHING. CALL LIGHT AND PERSONAL ITEMS IN REACH.
--- NOTE | 2021-11-05 07:52 | NUR ---
YPT BS TAKEN/DOCUMENTED. OFFERED PT WARM WASH CLOTH FOR FACE/HANDS INDEPENDENT IN CARE. PT REQUESTED A WARM PACK FOR HER SHOULDER. NO OTHER NEEDS AT THIS TIME. CALL LIGHT IN REACH.
--- NOTE | 2021-11-05 10:04 | NUR ---
PT EATS 100% OF MORNING MEAL. CONTINUES TO TALK EXCESSIVELY. COOPERATIVE AND UPBEAT. PAIN MEDS ADMINISTERED PT ANTICIPATES P/T AT 1100. DENIES OTHER NEEDS AT THIS TIME CALL LIGHT IN HAND
--- NOTE | 2021-11-05 12:41 | NUR ---
PT UP TO THE CHAIR WITH ASSIST OF P/T. LUNCH IS SERVED PT IN RECLINER FOR MEAL. CALL LIGHT IN LAP
--- NOTE | 2021-11-05 13:13 | NUR ---
MET WITH PATIENT TO DISCUSS FOOD OPTIONS. SHE DOES NOT LIKE BEEF, PORK, TURKEY, SALMON, OR TUNA. SHE WILL EAT CHICKEN BREAST THAT IS GRILLED/SEARED UNTIL SLIGHTLY BROWN. SHE PREFERS REAL BUTTER OVER MARGARINE AND NO SOY PRODUCTS. LIKES COTTAGE CHEESE, JELLO, PUDDING, OVER EASY EGGS, GRILLED CHEESE ON WHEAT WITH REAL BUTTER. SHE IS DRINKING ABOUT 1 ENSURE ENLIVE A DAY HERE. SHE PREFERS VANILLA AND STRAWBERRY, NOT CHOCOLATE. SHE ATE 100% OF BREAKFAST THIS AM AND WANTS A LIGHT LUNCH TODAY. DIETARY WILL CONTINUE TO SEND 1 ENSURE AT BREAKFAST. WILL ASK IF THE SOFT & BITE SIZE CAN BE REMOVED FROM HER DIET ORDER PATIENT DOES NOT HAVE DYSPHAGIA.
--- NOTE | 2021-11-05 13:37 | NUR ---
RETURNED CALL TO TRAE CARLTON. MESSAGE LEFT. SHE CALLED BACK AND LEFT MESSAGE STATING THEY ARE WORKING ON LONG-TERM CARE FOR PATIENT. SHE WAS INTERESTED IN DISCHARGE DATE. RETURNED CALL, LEFT MESSAGE THAT PATIENT DOES NOT HAVE DISCHARGE DATE OF YET.
--- NOTE | 2021-11-05 14:22 | NUR ---
INTO SPEAK WITH PATIENT. PATIENT SITTING UP IN CHAIR. UPDATE GIVEN THAT WE HAVE RECVED CALL FROM TRAE AT [facility] REGARDING CONTINUATION OF THE [employer] MEDICAID AND MEAL DELIVERY. PATIENT STATES SHE HAS JUST FINISH SPEAKING TO ILEANA ALMEIDA AT [facility] AND HAS OPTED TO KEEP HER CURRENT MEDICAL INSURANCE. PATIENT STATES SHE IS READY TO GO HOME AND BEGIN TO GET READY TO RETURN TO WORK. PATIENT STATES HER SON RYAN AND HER FRIEND TRAY WILL BE ABLE TO ASSIST HER AT DISCHARGE. SHE STATES SHE IS COMFORTABLE WITH THIS PLAN AND ASKS ME TO UPDATE DR. JETER. KAYODE LEE INTO THE ROOM TO ASSIST PATIENT TO THE REST ROOM, NO FURTHER QUESTIONS OR CONCERNS FROM THE PATIENT AT THIS TIME.
--- NOTE | 2021-11-05 16:05 | NUR ---
PT AMBULATES TO THE TOILET SBA WITH FWW. USES CALL LIGHT APPROPRIATELY BACK TO THE BED TO REST FOR A TIME. NO FURTHER C/O PAIN OR DISCOMFORTS
--- NOTE | 2021-11-05 17:30 | NUR ---
PT AWAKENS TO VOICE ASSISTED TO REPOSITION IN BED FOR EVENING MEAL. NO C/O PAIN OR DISCOMFORTS
--- NOTE | 2021-11-05 17:43 | NUR ---
PT CALLED TO BE CHANGED BECUASE SHE HAD AN INCONTINENT VOID. i EXPLAINED TO HER THAT WE WOULD LIKE HER TO GET UP AND AMBULATE TO THE BATHROOM. SHE STATED "OH YEAH, I FORGOT WE WERE GOING TO DO THAT, I'LL REMEMBER NEXT TIME". THIS CNA2 CHANGED HER PAD AND PERFORMED CASE CARE. ELEVATED PT LEGS W/PILLOWS. PT IS COMFORTABLE IN BED W/ CALL LIGHT IN REACH TO CALL WHEN SHE NEEDS TO VOID AGAIN.
--- NOTE | 2021-11-05 19:24 | NUR ---
REPORT RECEIVED FROM DAY SHIFT RN. PT LYING IN BED ALERT AND ORIENTED. DENIES NEEDS. WHITE BOARD UPDATED. CALL LIGHT IN REACH.
--- NOTE | 2021-11-05 21:15 | NUR ---
PATIENT GOT UP TO THE BEDSIDE COMMODE 1PA WITH WALKER. PATIENT VOIDED 400ML. PATIENT IS BACK IN BED. BLOOD SUGAR CHECK, V/S AND I&O'S TAKEN AND CHARTED. NO COMPLAIN OR FURTHER NEEDS AT THIS TIME. JELLO PROVIDED PER PATIENT.
--- NOTE | 2021-11-05 21:21 | NUR ---
PT USED COMMODE W/ ASSIST FROM 2 LADLE FILLER'S. PT REQ 2 JELLOS. NURSE NOTIFIED. JELLO GIVEN TO PT. PT REQ NAIL LITHUANIAN REMOVER. NAIL LITHUANIAN PADS GIVEN TO PT. PT LAID BACK IN BED. CALL LIGHT WITHIN REACH. NO FURTHER NEEDS AT THIS TIME.
--- NOTE | 2021-11-05 22:15 | NUR ---
EVENING ASSESSMENT COMPLETE. SCHEDULED MEDS ADMIN PER EMAR. PT REPORTS LUE/NECK PAIN 08/14. REQUESTS PRN FOR PAIN. PRN ADMIN PER EMAR. D10 INFUSING IN RIGHT SIDE PORT. PORT FLUSHED PER PROTOCOL. BRISK BLOOD RETURN NOTED. SITE WNL. DRESSING TO LLE CDI. BLE ELEVATED ON PILLOWS. ASSISTED PT TO REPOSITION FOR COMFORT. JELLO PROVIDED. PT DENIES QUESTIONS OR CONCNERNS. CALL LIGHT IN REACH.
--- NOTE | 2021-11-06 00:03 | NUR ---
1 PA PATIENT URINATED WHILE GETTING UP TO THE BEDSIDE COMMODE. OFFERED PULL UP WITH PAD. ASSISTED IN CASE CARE. PATIENT IS BACK IN BED. NO OTHER NEEDS AT THIS TIME. CALL LIGHT WITHIN REACH.
--- NOTE | 2021-11-06 01:15 | NUR ---
CALL LIGHT ANSWERED. BEDSIDE COMMODE. 1PA. PATIENT'S PAD AND PULL UPS WERE WET AND VOIDED 300ML ON THE HAT. PATIENT IS BACK IN BED. PUDDING PROVIDED PER PATIENT.
--- NOTE | 2021-11-06 03:38 | NUR ---
PT RESTING IN BED WITH EYES CLOSED. RESPIRATIONS EVEN. CALL LIGHT IN REACH.
--- NOTE | 2021-11-06 05:30 | NUR ---
CALL LIGHT ANSWERED. PT UP TO BSC WITH 1PA AND FWW TO VOID. PT INCONTINENT IN BRIEF ALSO. CASE CARE DONE BY STAFF. BACK TO BED. REQUIRES FREQUENT QUEING. UNABLE TO LIFT LEGS INTO BED. STAFF ASSIST. REPOSITIONED WITH PILLOWS. SCHEDULED MEDS ADMIN. NEW BAG D10 INFUSING AT 50 ML/HR. NO FURTHER NEEDS. CALL LIGHT IN REACH.
--- NOTE | 2021-11-06 07:25 | NUR ---
PT AWAKE AND INTERACTIVE AT TIME OF REPORT. RESTING IN BED NEEDED ITEMS AT BEDSIDE CALL LIGHT IN LAP. PT STATES HER SHOULDER IS MUCH BETTER THAN A FEW DAYS AGO. DENIES PAIN AT THIS TIME.
--- NOTE | 2021-11-06 07:30 | NUR ---
PT AWAKE IN BED. WHITE BOARD UPDATED. WARM CLOTH GIVEN FOR FACE. CALL LIGHT IN REACH. NO FURTHER NEEDS AT THIS TIME.
--- NOTE | 2021-11-06 08:45 | NUR ---
Spoke with pt and she plans on dc to home today. She declines assist to get a CG in the home and declines HH. Pt plans on dc to home with her boyfriend, Edward. She would like to have a pcp in [place] so she does not have to drive to [place]. She will go home with her boyfriend.
--- NOTE | 2021-11-06 09:25 | NUR ---
PT UPRIGHT IN BED TALKATIVE SHE WAS YESTERDAY, STATES SHE HOPES TO GO HOME TODAY. DENIES DISCOMFORTS OR CONCERNS. DC PUMPER HEAD IN TO SPEAK WITH HER.
--- NOTE | 2021-11-06 09:25 | NUR ---
I was able to meet with Nancy this morning. She staes that her care has been o.k., she has had some issues with pain, and difibulty with pain management with movement. Concerned about her "blood infection' and lab draws. She c/o pain with her arthritis, and history of broken bones. I did apologize for her discomfort felt with movement and procedures. Nancy also feels that probably the staff have had a little bit of "insensitiviy" towards her, she feels like her pain has contributed to her feelings of insensitivity. Other than pain issues, and dificulty with movement with staff she expresses no concerns regarding her care. Nancy does believe that the staff have been doing much better over the past three days with pain management, which is an improvement with her pain management prior and during this hopsitalization. She is a bit nervous about wearing a fentanyl patch secondary "to all the stories I have heard about fentanyl." Although she expresses concern about her initial pain management, she again does admit that the pain management is much better now. No other topics of arti were mentioned or discussed at this time. Nancy states "there was some miscomunication, I am fine with that, I am really happy now that it doesn't hurt anymore." She adds "I understand that some nurses might be a little bit more experienced than others, I am glad they have it figured out now to help me with my pain."
--- NOTE | 2021-11-06 10:51 | NUR ---
PT SLEEPING SOUNDLY DOES NOT AWAKE TO VOICE. BLOOD SUGAR CHECKED AFTER D10 DC'D AROUND 0900. SUGAR 85 PT AWAKE NOW AND VERY TALKATIVE. DENIES DISCOMFORTS
[2021-11-06] MEDS ORDERED: LEVOFLOXACIN500 MG PO (11:58)
[2021-11-06] MEDS ORDERED: GLUCOSE4 GM PO (11:59)
[2021-11-06] MEDS ORDERED: MAG DELAY64 M1 PO (12:00)
--- NOTE | 2021-11-06 12:35 | NUR ---
PT UP TO THE CHAIR FOR NOON MEAL. REPORTS MEETING WITH DR CAMPOS AND DC ORDERS. SIGNIFICANT OTHER CALLS RN STATION WITH QUESTIONS, PT DOES NOT GIVE PERMISSION FOR THIS SHEARER PRINTED CIRCUIT BOARDS TO ANSWER TO HIM. PT DENIES QUESTIONS OR CONCERNS R/T TO DC
--- NOTE | 2021-11-06 14:25 | NUR ---
Called son, eric, an updated pt has discharged and declined help in the home. I am also attempting to get her scheduled with a pcp in [facility]. Called and spoke with Kaley CUNHA, pt scheduled to see NICOL Berry on November 09 at 2 pm to establish care.
--- NOTE | 2021-11-06 14:32 | NUR ---
I was unable to reach pt or her boyfriend Edward. Left messages for appt and time.
== END 2021-11-06 13:10 | disposition home or self-care (01) | DRG 867 ==
LOC: ED 04:44 → CCU 04:45 → MS 11:14 → CCU 11:14 → MS 10-30 18:45
PROVIDERS: ADMIT Internal Medicine; ATTEND Internal Medicine
PROC: 3E033XZ Introduction of Vasopressor into Peripheral Vein, Percutaneous Approach (ICD-10-PCS; principal; 2021-10-24)
PROC: 3E03329 Introduction of Other Anti-infective into Peripheral Vein, Percutaneous Approach (ICD-10-PCS; 2021-10-24)
DX: A48.3 Toxic shock syndrome (principal); G93.41 Metabolic encephalopathy; L03.116 Cellulitis of left lower limb; L03.115 Cellulitis of right lower limb; Z20.822 Contact with and (suspected) exposure to COVID-19; E16.2 Hypoglycemia, unspecified; F15.10 Other stimulant abuse, uncomplicated; E83.42 Hypomagnesemia; G89.3 Neoplasm related pain (acute) (chronic); C50.912 Malignant neoplasm of unspecified site of left female breast; E87.6 Hypokalemia; F11.10 Opioid abuse, uncomplicated; D69.6 Thrombocytopenia, unspecified; E80.6 Other disorders of bilirubin metabolism; Z98.51 Tubal ligation status; Z98.890 Other specified postprocedural states; Z88.2 Allergy status to sulfonamides; Z88.8 Allergy status to other drugs, medicaments and biological substances; Z79.899 Other long term (current) 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
CPT/HCPCS: 36415; 36430; 36600; 51701; 70450; 71045; 74177; 76705; 80048; 80053; 80061; 80202; 81001; 82140; 82533; 82803; 83605; 83735; 84100; 84134; 84439; 84443; 84484; 85025; 85060; 85610; 85730; 86850; 86900; 86901; 86922; 87040; 87070; 87077; 87186; 87205; 87502; 93005; 93010; 97110; 97116; 97140; 97163; 97166; 97530; 99285-25; A9270; C9113; C9803; G0480; J0690; J0692; J0696; J1650; J1956; J2060; J2310; J3370; J3430; J3475; J3480; J7030; J7060; J7121; P9035; P9047; Q9967; U0003

== ENCOUNTER 2021-12-27 19:28 | Emergency (ER) | payer OTHER ==
[~2021-12-27 19:28] MED LIST changes: +ALPRAZOLAM0.25 MG PO; +BACLOFEN5 MG PO; +DULOXETINE HCL60 MG PO; +FENTANYL1 EAC3 TD; +FUROSEMIDE20 MG PO; +GLUCOSE4 GM PO; +HYDROMORPHONE HC4 MG PO; +LEVOFLOXACIN500 MG PO; +MAG DELAY64 M1 PO; +SPIRONOLACTONE50 MG PO
--- OUTSIDE RECORDS SUMMARY | 2021-12-27 19:30 | XMS ---
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 E.D. VISIT COUNT (12 MO.) 1 [facility] 3 [facility] [place] TOTAL 4 NOTE: Visits indicate total known visits. ED/UCC VISIT TRACKING (12 MO.) 12/27/2021 19:28 [facility] [place] TYPE: Emergency COMPLAINT: - TRAUMA ADULT 11/19/2021 12:26 [facility] [place] TYPE: Emergency DIAGNOSES: - Acute vaginitis - GENERAL 10/24/2021 04:44 [facility] TYPE: Emergency COMPLAINT: - WEAKNESS 02/06/2021 16:09 [facility] TYPE: Emergency COMPLAINT: - L ANKLE SORE/PAINFUL DIAGNOSES: - Striking against or struck by other objects, initial encounter - Contusion of left hand, initial encounter - Fracture of nasal bones, initial encounter for closed fracture INPATIENT VISIT TRACKING (12 MO.) 10/24/2021 11:14 [facility] TYPE: Medical Surgical COMPLAINT: - SEVERE SEPSIS DIAGNOSES: - Tubal ligation status - Allergy status to sulfonamides - Personal history of malignant neoplasm of breast - Other senior care (current) 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 - Allergy status to other drugs, medicaments and biological substances - Other specified postprocedural states - Tubal ligation status - 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) 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 - Toxic shock syndrome - Neoplasm related pain (acute) (chronic) - Cellulitis of left lower limb - Other specified postprocedural states - Hypoglycemia, unspecified - Sepsis, unspecified organism - Opioid abuse, uncomplicated - Malignant neoplasm of unspecified site of left female breast - Chronic pain syndrome - Metabolic encephalopathy - Cellulitis of left lower limb - Other disorders of bilirubin metabolism - Cellulitis of right lower limb - Streptococcus, group A, as the cause of diseases classified elsewhere - Severe sepsis with septic shock - Contact with and (suspected) exposure to COVID-19 - Neoplasm related pain (acute) (chronic) - Sepsis due to streptococcus, group A - Hypomagnesemia - Allergy status to sulfonamides - Other stimulant abuse, uncomplicated - Hypokalemia - Infection following a procedure, unspecified, initial encounter - Opioid abuse, uncomplicated - Other disorders of bilirubin metabolism - Hypokalemia - Cellulitis of right lower limb - Other stimulant abuse, uncomplicated - Thrombocytopenia, unspecified - Allergy status to other drugs, medicaments and biological substances - Contact with and (suspected) exposure to COVID-19 - Hypomagnesemia - Toxic shock syndrome - Hypoglycemia, unspecified - Metabolic encephalopathy - Malignant neoplasm of unspecified site of left female breast - Thrombocytopenia, unspecified [email or web address]
--- NOTE | 2021-12-29 20:49 | EKG ---
[facility] [address] [place] [address] Signed Sinus tachycardia Septal infarct , age undetermined Abnormal ECG No previous ECGs available Confirmed by Barry Chirinos MD () on 12/29/2021 8:49:39 PM Electronically Signed By: BARRY CHIRINOS MD 12/29/212048 PATIENT NAME: FELIBERTOSAJI Electrocardiogram DATE OF : 69 PHYSICIAN: BARRY CHIRINOS MD REPORT #: [id number] REPORT IS CONFIDENTIAL AND NOT TO BE RELEASED WITHOUT AUTHORIZATION
== END 2021-12-28 17:44 ==
LOC: ED 19:28
DX: S06.9X9A Unspecified intracranial injury with loss of consciousness of unspecified duration, initial encounter (principal); R41.82 Altered mental status, unspecified; E16.2 Hypoglycemia, unspecified; R09.02 Hypoxemia; R57.8 Other shock; Z85.3 Personal history of malignant neoplasm of breast; X58.XXXA Exposure to other specified factors, initial encounter; Z88.2 Allergy status to sulfonamides; Z88.1 Allergy status to other antibiotic agents; Z79.899 Other long term (current) 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; Z79.891 Long term (current) use of opiate analgesic; Z20.822 Contact with and (suspected) exposure to COVID-19
CPT/HCPCS: 36415; 36600; 51702; 70450; 71045; 71260; 72125; 72170; 74177; 80048; 80053; 81001; 82150; 82553; 82803; 83605; 83690; 84484; 85025; 85060; 87040; 87077; 87088; 87186; 87502; 93005; 93010; 94002; 94003; 99285-25; A9270; C9113; C9803; G0480; J0696; J1940; J2270; J2543; J3480; J7030; J7121; Q9967; U0003